=== PATIENT | male | born 1955 | race Caucasian/White ===

== ENCOUNTER → 2017-12-07 09:12 | Outpatient (CLI) | payer MEDICARE, OTHER, SELFPAY ==
[2017-12-07 11:57] LABS: Color, Urine Yellow (Yellow); Glucose, Dipstick Normal (Normal); Ketone-Dipstick Negative (Negative); Leukocyte Esterase-Dipstick Negative /ul (Negative); Nitrite-Dipstick Negative (Negative); Occult Blood-Urine Negative /ul (Negative); Protein-Dipstick 15 mg/dl (Negative); Urine Bilirubin Dipstick Negative (Negative); Urine Clarity Clear (Clear); Urine Urobilinogen Normal (Normal); Urine pH 6.5 (5.0 - 8.0)
[2017-12-07 12:01] LABS: Absolute Lymphocyte Count 1.25 X10^3/ul (0.83-4.51); Absolute Neutrophil Count 3.5 X10^3/uL (2.0-7.7); Basophil# 0.02 X10^3/uL; Basophil% 0.3 % (0-1); Eosinophil# 0.29 X10^3/uL; Hematocrit 48.2 % (40-54); Hemoglobin 16.6 g/dl (13.0-16.5); Lymphocyte # 1.25 X10^3/ul (4.0); Lymphocyte % 21.5 % (19-41); Mean Corp Hgb Conc 34.4 g/gl (32-36); Mean Corpuscular Hgb 33.9 pg (27.0-32.0); Mean Corpuscular Volume 98.4 fL (80-94); Mean Platelet Vol. 9.6 fl (6.2-12.0); Monocyte# 0.69 X10^3/uL; Monocyte% 11.9 % (0-10); Neutrophil % 60.1 % (47-70); Platelet Count 207 K/mm3 (150-450); RBC Distribution Width CV 12.4 % (11.6-14.6); White Blood Count 5.8 K/mm3 (4.4-11.0)
[2017-12-07 12:03] LABS: POSITIVE COUNT NO; POSITIVE DIFFERENTIAL NO; POSITIVE MORPHOLOGY NO
[2017-12-07 12:45] LABS: AST(SGOT) 24 U/L (15-37); Alanine Aminotransfer ALT/SGPT 35 U/L (16-61); Albumin, Serum 3.7 g/dL (3.2-5.0); Alkaline Phosphatase 89 U/L (45-117); Anion Gap 8 (5-15); BUN 14 mg/dL (7-18); BUN/Creat Ratio 14.4 RATIO (10-20); Calcium,Total 8.8 mg/dL (8.5-10.1); Chloride 103 mmol/L (98-107); Cholesterol 172 mg/dL (200); Creatinine, Serum 0.97 mg/dL (0.70-1.30); EST Glomerular Filtration Rate 83 mL/min (>60); Est Glom Filt Rate - Afr Amer 101 mL/min (>60); Globulin 3.8 g/dL (2.2-4.2); Glucose 85 mg/dL (70-110); High Density Lipoprotein 69 mg/dL; Potassium 4.1 mmol/L (3.5-5.1); Protein, Total 7.5 g/dL (6.4-8.2); Sodium Level 140 mmol/L (136-145); Triglycerides 104 mg/dL; Very Low Density Lipoprotein 21 mg/dL (5-40)
== END ==
PROVIDERS: Family Provider Family Medicine; PCP Family Medicine; Visit Provider Family Medicine
DX: Z00.00 Encounter for general adult medical examination without abnormal findings (principal); I10 Essential (primary) hypertension
CPT/HCPCS: 36415; 80053; 80061; 81002; 85025

== ENCOUNTER → 2018-01-04 08:10 | Outpatient (CLI) | payer MEDICARE, OTHER, SELFPAY | PROVIDERS: Visit Provider Family Medicine | DX: Z12.5 Encounter for screening for malignant neoplasm of prostate (principal) | CPT/HCPCS: 36415; 84153; G0103 ==

== ENCOUNTER → 2018-01-21 16:06 | Outpatient (CLI) | payer MEDICARE, OTHER, SELFPAY ==
[2018-01-21 17:52] LABS: PSA,Total- Diagnostic 4.62 ng/mL (0.0-4.0)
== END ==
PROVIDERS: Visit Provider Urology
DX: R97.20 Elevated prostate specific antigen [PSA] (principal)
CPT/HCPCS: 36415; 84153

== ENCOUNTER → 2018-04-28 08:43 | Outpatient (CLI) | payer MEDICARE, BC, SELFPAY ==
[2018-04-28 09:38] LABS: PSA,Total- Diagnostic 1.62 ng/mL (0.0-4.0)
== END ==
PROVIDERS: Visit Provider Urology
DX: R97.20 Elevated prostate specific antigen [PSA] (principal)
CPT/HCPCS: 36415; 84153

== ENCOUNTER → 2018-07-14 12:42 | Outpatient (CLI) | payer MEDICARE, BC, SELFPAY ==
[2018-07-14 14:59] LABS: Anion Gap 10 (5-15); BUN 8 mg/dL (7-18); BUN/Creat Ratio 9.1 RATIO (10-20); Calcium,Total 8.9 mg/dL (8.5-10.1); Chloride 103 mmol/L (98-107); Creatinine, Serum 0.88 mg/dL (0.70-1.30); EST Glomerular Filtration Rate 93 mL/min (>60); Est Glom Filt Rate - Afr Amer 113 mL/min (>60); Glucose 108 mg/dL (74-106); Potassium 4.3 mmol/L (3.5-5.1); Sodium Level 140 mmol/L (136-145)
== END ==
PROVIDERS: Visit Provider Family Medicine
DX: R10.9 Unspecified abdominal pain (principal)
CPT/HCPCS: 36415; 80048

== ENCOUNTER → 2019-10-26 08:49 | Outpatient (CLI) | payer MEDICARE, BC, SELFPAY ==
[2019-10-26 10:14] LABS: Absolute Lymphocyte Count 1.64 X10^3/uL (0.83-4.51); Absolute Neutrophil Count 1.9 X10^3/uL (2.0-7.7); Basophil# 0.03 X10^3/uL; Basophil% 0.7 % (0-1); Eosinophil# 0.13 X10^3/uL; Eosinophils% 3.1 % (0-5); Hematocrit 46.8 % (40-54); Hemoglobin 16.1 g/dL (13.0-16.5); Lymphocyte # 1.64 X10^3/ul (4.0); Lymphocyte % 38.8 % (19-41); Mean Corp Hgb Conc 34.4 g/dL (32-36); Mean Corpuscular Hgb 34.6 pg (27.0-32.0); Mean Corpuscular Volume 100.6 fL (80-94); Mean Platelet Vol. 9.4 fl (6.2-12.0); Monocyte# 0.48 X10^3/uL; Monocyte% 11.3 % (0-10); NRBC Flagged by Analyzer 0 % (0-5); Neutrophil # 1.88 X10^3/uL (2.7-7.7); Neutrophil % 44.4 % (47-70); Platelet Count 188 K/mm3 (150-450); RBC Distribution Width CV 11.8 % (11.6-14.6); RBC Distribution Width SD 43.4 fl (35.1-43.9); Red Blood Count 4.65 M/mm3 (4.6-6.2); White Blood Count 4.2 K/mm3 (4.4-11.0)
[2019-10-26 10:25] LABS: Color, Urine Yellow (Yellow); Glucose, Dipstick Normal (Normal); Ketone-Dipstick Negative (Negative); Leukocyte Esterase-Dipstick Negative /ul (Negative); Nitrite-Dipstick Negative (Negative); Occult Blood-Urine Negative /ul (Negative); Protein-Dipstick 15 mg/dl (Negative); Specific Gravity, Urine 1.015 (1.002-1.030); Urine Bilirubin Dipstick Negative (Negative); Urine Clarity Clear (Clear); Urine Urobilinogen Normal (Normal)
[2019-10-26 10:33] LABS: ALB/GLOB Ratio 0.9 RATIO (0.9-2.4); AST(SGOT) 28 U/L (15-37); Alanine Aminotransfer ALT/SGPT 43 U/L (16-61); Albumin, Serum 3.4 g/dL (3.2-5.0); Alkaline Phosphatase 99 U/L (45-117); Anion Gap 7 (5-15); BUN 12 mg/dL (7-18); BUN/Creat Ratio 11.1 RATIO (10-20); Calcium,Total 8.2 mg/dL (8.5-10.1); Chloride 102 mmol/L (98-107); Cholesterol 162 mg/dL (200); Creatinine, Serum 1.08 mg/dL (0.70-1.30); EST Glomerular Filtration Rate 73 mL/min (>60); Est Glom Filt Rate - Afr Amer 88 mL/min (>60); Globulin 3.7 g/dL (2.2-4.2); Glucose 102 mg/dL (74-106); High Density Lipoprotein 58 mg/dL; PSA,Total - Annual Screen 1.22 ng/mL (0.00-4.00); Potassium 4.3 mmol/L (3.5-5.1); Protein, Total 7.1 g/dL (6.4-8.2); Sodium Level 137 mmol/L (136-145); Triglycerides 117 mg/dL; Very Low Density Lipoprotein 23 mg/dL (5-40)
== END ==
PROVIDERS: Referring Provider Family Medicine; Visit Provider Family Medicine
DX: Z00.00 Encounter for general adult medical examination without abnormal findings (principal); I10 Essential (primary) hypertension; R97.20 Elevated prostate specific antigen [PSA]
CPT/HCPCS: 36415; 80053; 80061; 81002; 84153; 85025; G0103

== ENCOUNTER → 2020-11-21 08:13 | Outpatient (CLI) | payer MEDICARE, BC, SELFPAY ==
--- NOTE | 2020-11-21 08:35 | EKG12_ITS ---
Test Reason : PREOP Blood Pressure : / mmHG Vent. Rate : 093 BPM Atrial Rate : 093 BPM P-R Int : 144 ms QRS Dur : 084 ms QT Int : 362 ms P-R-T Axes : 065 071 056 degrees QTc Int : 450 ms Normal sinus rhythm Normal ECG Confirmed by LILLIAM OLIVA, RYAN ([id number]), scientific editor SHANTANU DUNHAM ([id number]) on 11/22/2020 11:33:13 AM Referred By: NEEL DAVE Confirmed By:RYAN VYAS MD
[2020-11-21 09:25] LABS: Absolute Lymphocyte Count 1.67 X10^3/uL (0.83-4.51); Absolute Neutrophil Count 4.1 X10^3/uL (2.0-7.7); Basophil# 0.06 X10^3/uL; Basophil% 0.9 % (0-1); Eosinophil# 0.31 X10^3/uL; Eosinophils% 4.5 % (0-5); Hematocrit 47.1 % (40-54); Hemoglobin 16.6 g/dL (13.0-16.5); Lymphocyte # 1.67 X10^3/ul (4.0); Lymphocyte % 24.2 % (19-41); Mean Corp Hgb Conc 35.2 g/dL (32-36); Mean Corpuscular Hgb 35.4 pg (27.0-32.0); Mean Corpuscular Volume 100.4 fL (80-94); Mean Platelet Vol. 9.2 fl (6.2-12.0); Monocyte# 0.68 X10^3/uL; Monocyte% 9.9 % (0-10); NRBC Flagged by Analyzer 0 % (0-5); Neutrophil # 4.09 X10^3/uL (2.7-7.7); Neutrophil % 59.3 % (47-70); Platelet Count 285 K/mm3 (150-450); RBC Distribution Width CV 11.7 % (11.6-14.6); RBC Distribution Width SD 43.1 fl (35.1-43.9); Red Blood Count 4.69 M/mm3 (4.6-6.2); White Blood Count 6.9 K/mm3 (4.4-11.0)
[2020-11-21 10:01] LABS: Anion Gap 7 (5-15); BUN 8 mg/dL (7-18); BUN/Creat Ratio 8.2 RATIO (10-20); Calcium,Total 9.1 mg/dL (8.5-10.1); Chloride 101 mmol/L (98-107); Creatinine, Serum 0.98 mg/dL (0.70-1.30); EST Glomerular Filtration Rate 81 mL/min (>60); Est Glom Filt Rate - Afr Amer 98 mL/min (>60); Glucose 91 mg/dL (74-106); Sodium Level 137 mmol/L (136-145)
== END ==
DX: I10 Essential (primary) hypertension (principal)
CPT/HCPCS: 36415; 80048; 85025; 93005

== ENCOUNTER 2020-12-27 03:49 | Inpatient (IN) | payer MEDICARE, OTHER, BC, SELFPAY ==
[2020-12-27] VITALS (29 sets, daily range): BP systolic 107–160; BP diastolic 76–102; PULSE 86–115; RESP 9–26; TEMP 36.6–36.9; O2SAT 91–99; BMI 25.8
--- NOTE | 2020-12-27 03:54 | EKG12_ITS ---
Test Reason : CP Blood Pressure : / mmHG Vent. Rate : 108 BPM Atrial Rate : 108 BPM P-R Int : 128 ms QRS Dur : 084 ms QT Int : 322 ms P-R-T Axes : 052 068 085 degrees QTc Int : 431 ms Sinus tachycardia Nonspecific ST and T wave abnormality Abnormal ECG Confirmed by LILLIAM OLIVA, RYAN ([id number]), scientific publications editor KATE BLANK ([id number]) on 01/14/2021 2:50:55 PM Referred By: Deanna Champion Confirmed By:RYAN VYAS MD
--- NOTE | 2020-12-27 03:54 | EKG12_ITS ---
Test Reason : AM EKG Blood Pressure : / mmHG Vent. Rate : 091 BPM Atrial Rate : 091 BPM P-R Int : 140 ms QRS Dur : 084 ms QT Int : 378 ms P-R-T Axes : 050 046 056 degrees QTc Int : 464 ms Normal sinus rhythm Normal ECG When compared with ECG of 27-DEC-2020 04:01, MANUAL COMPARISON REQUIRED, DATA IS UNCONFIRMED Confirmed by ERASMO OLIVA, RUKHSANA ([id number]), scientific editor KATE BLANK ([id number]) on 12/31/2020 11:02:21 AM Referred By: Deanna Champion Confirmed By:RUKHSANA ZIMMERMAN MD
--- NOTE | 2020-12-27 03:54 | RAD_ITS ---
STUDY: X-RAY CHEST REASON FOR EXAM: Male, 65 years old. STEMI -- CP STARTED YESTERDAY TECHNIQUE: Single AP portable view of the chest. COMPARISON: 11/29/2015 FINDINGS: The lungs are clear and expanded. There is no demonstrated pleural abnormality. Normal size heart. Normal mediastinum and roopa. Normal visualized pulmonary arteries. Normal visualized aortic arch and descending thoracic aorta. Normal visualized thoracic spine. Normal visualized ribs, clavicles, and shoulders. There is no demonstrated abnormality of the visualized soft tissue structures of the upper abdomen. RAD/Chest 1 View (Portable) IMPRESSION: Normal x-ray examination of the chest. Electronically Signed: Domingo Mendoza DO at 4:23 EST Tel , Service support ,
[2020-12-27] MEDS: Aspirin 81 MG TAB.CHEW 324 MG PO (03:58)
--- NOTE | 2020-12-27 03:59 | ED.DCSUM_ITS ---
History of Present Illness Chief Complaint: Chest Pain Narrative: Patient is a 65-year-old male who presents with severe chest pain. He had chest pain in the morning about 3 weeks ago but this is since resolved. He developed some chest pain yesterday afternoon which seemed to improve towards the evening. He went to bed. He woke about an hour ago with severe pain. His pain is substernal. It is sharp in nature. He rates it as 10 out of 10. There are no exacerbating or relieving factors. He states he has never had pain like this before. He denies any lightheadedness/dizziness, shortness of breath, diaphoresis, nausea. His pain does not radiate into the back neck or to the extremities. He denies any extremity pain or swelling, prior history of DVT or pulmonary embolism, recent travel, he did have a left rotator cuff shoulder surgery about 1 month ago. Past Medical History - Allergies and Home Meds Allergies/Adverse Reactions: Allergies No Known Allergies Allergy (Verified 12/27/20 03:51) Primary Care Physician: Hugh Ramos [Primary Care Provider] - Past Medical History: - - Hypertension Smoking Status: Never smoker Review of Systems All systems negative except as indicated General: Denies: Fever Eyes: Denies: Visual changes - bilaterally ENT: Denies: Bilateral ear pain Cardiovascular: Reports: Chest pain Respiratory: Denies: Dyspnea Gastrointestinal: Denies: Nausea, Vomiting Musculoskeletal: Denies: Myalgias, Extremity Pain Skin: Denies: Rash Neurological: Denies: Headache Hematologic: Denies: Easy bruising Allergy: Denies: Uticaria Physical Exam Vital Signs/Narrative: Vital Signs Temp Pulse Resp BP Pulse Ox 12/27/20 03:49 97.9 F 111 H 18 160/97 H 97 Inital Vital Signs reviewed: Yes General: Well nourished Head: Normocephalic Eyes: EOMI ENT: Moist mucous membranes Neck: Supple Cardiovascular: Regular rhythm, Tachycardia Respiratory: No distress, CTA bilaterally. Negative for: Rales, Rhonchi, Wheezing Abdomen: Soft, Nontender Skin: Normal color Neurological: Alert Psychological: Normal affect Diagnostic/Tx/Re-eval 12/27/20 03:54 Chest 1 View (Portable) [RAD] Stat Laboratory Results 12/27/20 03:54 WBC 8.5 RBC 4.95 Hgb 17.4 H Hct 50.5 MCV 102.0 H MCH 35.2 H MCHC 34.5 RDW Std Deviation 44.9 H RDW Coeff of Anabella 12.0 Plt Count 320 MPV 8.5 Immature Gran % (Auto) 1.800 H Neut % (Auto) 65.9 Lymph % (Auto) 20.1 [place] % (Auto) 9.6 Eos % (Auto) 1.8 Baso % (Auto) 0.8 Absolute Neuts (auto) 5.6 Absolute Lymphs (auto) 1.70 Nucleated RBC % 0 Impressions Chest X-Ray 12/27/20 03:54 IMPRESSION: Normal x-ray examination of the chest. Electronically Signed: Domingo DO Reji at 4:23 EST Tel , Service support , 12/27/20 03:54 Chest 1 View (Portable) [RAD] Stat Laboratory Results 12/27/20 12/27/20 03:54 03:54 WBC 8.5 RBC 4.95 Hgb 17.4 H Hct 50.5 MCV 102.0 H MCH 35.2 H MCHC 34.5 RDW Std Deviation 44.9 H RDW Coeff of Anabella 12.0 Plt Count 320 MPV 8.5 Immature Gran % (Auto) 1.800 H Neut % (Auto) 65.9 Lymph % (Auto) 20.1 [place] % (Auto) 9.6 Eos % (Auto) 1.8 Baso % (Auto) 0.8 Absolute Neuts (auto) 5.6 Absolute Lymphs (auto) 1.70 Nucleated RBC % 0 Sodium 136 Potassium 3.7 Chloride 101 Carbon Dioxide 27.0 Anion Gap 8 BUN 6 L Creatinine 0.90 Estim Creat Clear Calc 79.17 Est GFR (MDRD) Af Amer 108 Est GFR (MDRD) Non-Af 89 BUN/Creatinine Ratio 6.6 L Glucose 131 H Calcium 9.4 Troponin I 1.540 H* - Medical Decision Making Initial EKG shows sinus tachycardia at a rate of 108. There is [address] elevation in lead III. Lead aVF is limited due to baseline wander and there is artifact in the precordial leads. A repeat EKG was obtained which shows sinus rhythm at a rate of 99. There is about [address] elevation in lead III and subtle roughly 0.[address] elevation in aVF as well as depression in leads I and aVL. When compared to prior EKG these are new. STEMI supply technician was paged, EKGs were sent via secure messaging system. Code STEMI was called. The patient was given aspirin, heparin, Brilinta, morphine, Zofran. One-view portable chest x-ray was obtained. On my interpretation this shows an acute process. X- ray read by radiology who agrees. I did speak to the interventional c ardiologist, Dr. Champion and patient will be taken for emergent cardiac catheterization. Labs did return notable for troponin of 1.5. - Critical Care Time Critical care time (excluding procedures): 30-74 minutes, Discussing w/Consultants ED Disposition - Plan for ED Patient: Disposition: Acute Care Hospital [facility] Diagnosis: ST elevation myocardial infarction (STEMI) of inferior wall Referrals: Hugh Ramos [Primary Care Provider] -
[2020-12-27 04:01] LABS: Absolute Neutrophil Count 5.6 X10^3/uL (2.0-7.7); Basophil# 0.07 X10^3/uL; Basophil% 0.8 % (0-1); Eosinophil# 0.15 X10^3/uL; Eosinophils% 1.8 % (0-5); Hematocrit 50.5 % (40-54); Hemoglobin 17.4 g/dL (13.0-16.5); Lymphocyte % 20.1 % (19-41); Mean Corp Hgb Conc 34.5 g/dL (32-36); Mean Corpuscular Hgb 35.2 pg (27.0-32.0); Mean Platelet Vol. 8.5 fl (6.2-12.0); Monocyte# 0.81 X10^3/uL; Monocyte% 9.6 % (0-10); NRBC Flagged by Analyzer 0 % (0-5); Neutrophil # 5.57 X10^3/uL (2.7-7.7); Neutrophil % 65.9 % (47-70); Platelet Count 320 K/mm3 (150-450); RBC Distribution Width SD 44.9 fl (35.1-43.9); Red Blood Count 4.95 M/mm3 (4.6-6.2); White Blood Count 8.5 K/mm3 (4.4-11.0)
[2020-12-27] MEDS: Ondansetron 4 MG/2 ML Vial IV (04:04)
[2020-12-27] MEDS: Morphine 4 MG/ML Syringe IV (04:04)
[2020-12-27] MEDS: Heparin Injection (Vial) 5,000 UNIT/ML VIAL 4000 UNIT IV (04:18)
[2020-12-27] MEDS: TICAGRELOR 90 MG TABLET 180 MG PO (04:18)
[2020-12-27 04:23] LABS: Anion Gap 8 (5-15); BUN 6 mg/dL (7-18); BUN/Creat Ratio 6.6 RATIO (10-20); Calcium,Total 9.4 mg/dL (8.5-10.1); Chloride 101 mmol/L (98-107); EST Glomerular Filtration Rate 89 mL/min (>60); Est Glom Filt Rate - Afr Amer 108 mL/min (>60); Estimated Creatinine Clearance 79.17 ml/min; Glucose 131 mg/dL (74-106); Potassium 3.7 mmol/L (3.5-5.1); Sodium Level 136 mmol/L (136-145)
--- NOTE | 2020-12-27 04:24 | ED.RN ---
0406 current EKG and previous EKG picture msg texted to per request
--- NOTE | 2020-12-27 04:28 | PCM.HP.STD ---
Problem List (1) ST elevation myocardial infarction (STEMI) of inferior wall Status: Acute History of Present Illness Date of Admission: 12/27/20 Chief Complaint: chest pain The patient is a 65 year old M with a significant history of hypertension and alcoholism who presents to the emergency department with excruciating persistent lower substernal chest pain that was present when he woke up at around 1 AM of the day of presentation. He described this pain as burning. The pain is nonradiating. He denies any aggravating or ameliorating factors to the pain. Three weeks ago he had this pain but it was intermittent; and he attributed that pain to acid reflux. Patient arrived at emergency department by private vehicle. EKG at emergency department showed ST elevation ME. STEMI alert was called. Past Medical History Medical History: Medical History (Last Updated 12/27/20 @ 04:[address] Oswaldo Redd MD) Hypertension I10 Allergies No Known Allergies Allergy (Verified 12/27/20 03:51) Home Medications: Ambulatory Orders Medication Instructions Recorded Lisinopril [Zestril] 10 mg PO DAILY 12/27/20 Surgical History: rotator cuff repair Smoking Status: Never smoker Alcohol: Heavy - *Family History Maternal History Items: Heart Disease Paternal History Items: Diabetes Review of Systems Constitutional: Denies: Chills, Fever, Weight Change HEENT: Denies: Head Aches, Sinus Congestion, Sinus Drainage Cardiovascular: Reports: Chest Pain. Denies: Palpitations Respiratory: Denies: Cough, Shortness of breath at rest, Sputum production Gastrointestinal: Denies: Abdominal Pain, Nausea, Vomiting Genitourinary: Denies: Dysuria Musculoskeletal: Denies: Joint Pain, Joint Tenderness Skin: Denies: Rash, Wounds Neurological: Denies: Numbness, Tingling, Focal weakness Psychiatric: Denies: Anxiety, Depression, Homicidal Ideations, Suicidal Ideations Hematologic/ Lymphatic: Denies: Easy Bruising, Easy Bleeding VTE Information - Inpt Only VTE Present on Admission: No VTE Mechan Device Prophylaxis: None VTE Pharm Prophylaxis ordered?: No Reason prophylaxis not ordered:: Treatment Not Indicated - Received heparin bolus at the emergency department. Patient Problems: Active and Suspected Problems (Last Updated 12/27/20 @ 04:[address] Oswaldo Redd MD) ST elevation myocardial infarction (STEMI) of inferior wall (Acute) - Physical Exam Vitals/I&O's: Vital Signs Temp Pulse Resp BP Pulse Ox 97.9 F 111 H 18 160/97 H 97 12/27/20 03:49 12/27/20 03:49 12/27/20 03:49 12/27/20 03:49 12/27/20 03:49 Oxygen Delivery Method Room Air Weight: 77 kg Body Mass Index (BMI) 25.8 General: Alert, Oriented x3, Cooperative HEENT: Atraumatic, PERRLA, EOMI, Normocephalic Neck: Supple, No JVD, Negative Carotid Bruits Lungs: Clear to auscultation, Normal air movement Cardiovascular: Regular rate, No murmurs Abdomen: Bowel Sounds Present, Soft, Non Tender Extremities: No edema, Capillary Refill Less than 3 Seconds Skin: No rashes, No breakdown Musculoskeletal: No Tenderness to Palpation of Joints or Extremities Neurological: Cranial nerves II-XII grossly intact Psych/Mental Status: Normal Affect, Appropriate Laboratory Results 12/27/20 03:54: WBC 8.5, RBC 4.95, Hgb 17.4 H, Hct 50.5, MCV 102.0 H, MCH 35.2 H, MCHC 34.5, RDW Std Deviation 44.9 H, RDW Coeff of Anabella 12.0, Plt Count 320, MPV 8.5, Immature Gran % (Auto) 1.800 H, Neut % (Auto) 65.9, Lymph % (Auto) 20.1, [place] % (Auto) 9.6, Eos % (Auto) 1.8, Baso % (Auto) 0.8, Absolute Neuts (auto) 5.6, Absolute Lymphs (auto) 1.70, Nucleated RBC % 0 12/27/20 03:54: Sodium 136, Potassium 3.7, Chloride 101, Carbon Dioxide 27.0, Anion Gap 8, BUN 6 L, Creatinine 0.90, Estim Creat Clear Calc 79.17, Est GFR (MDRD) Af Amer 108, Est GFR (MDRD) Non-Af 89, BUN/Creatinine Ratio 6.6 L, Glucose 131 H, Calcium 9.4, Troponin I 1.540 H* 12/27/20 03:54: PT Pending, INR Pending, APTT Pending Assessment/Plan All Active Problems (Last Updated 12/27/20 @ 04:[address] Oswaldo Redd MD) ST elevation myocardial infarction (STEMI) of inferior wall (Acute) The patient is a 65 year old M with a significant history of hypertension and alcoholism who presents emergency department with excruciating persistent lower substernal chest pain that was present when he woke up at around 1 AM of the day of presentation and found to have ST elevation ME in inferior leads. ST elevation ME Patient was giving a full dose of aspirin; heparin bolus; morphine IV; Zofran IV and Brilinta x1 at the ED. Troponin returned elevated at 1.540; trend. Patient will be wheeled to the Management Technician. Actual chest x-ray image independently reviewed showed no acute cardiopulmonary process. EKG personally reviewed showed ST elevation in leads III and aVF; with reciprocal ST depression in leads I and aVL. Hypertension Blood pressure is not within goal Lisinopril continued. Hold parameters placed. Trend blood pressure and adjust blood pressure medications. Alcoholism. Patient and his confirmed that patient drinks lots. He drinks beer; wine and whiskey. Consider putting patient on withdrawal protocol when patient returned from Management Technician DVT prophylaxis Not indicated at this time since patient received heparin bolus and is being taken to the Management Technician. Inpatient E&M: 30665 Init Hosp L3
[2020-12-27 04:29] LABS: Prothrombin Time (Protime)PT. 12.3 SECONDS (11.7-14.9)
[2020-12-27 04:30] LABS: Partial Thromboplast Time 23.7 Seconds (24.1-36.2)
--- NOTE | 2020-12-27 06:33 | CL.PCI_ITS ---
PCI Cardiac Cath Report PCI Report: Procedure report; 1. Successful placement of drug-eluting stent 2.25 x 32 mm Synergy distal RCA, overlap with 2.25 mm x 32 mm Synergy stent to the mid RCA, overlap with 2.75 x 20 mm Synergy stent to the proximal RCA. 2. Occluded proximal RCA with calcification and DON 0 flow 3. Post PCI following stent placement achievement of 0% stenosis and DON-3 flow in the RCA. 4. Moderate sedation. 5. Placement of TR band to close the right radial artery arteriotomy site. Preprocedure diagnosis; This patient is a 65-year-old had ongoing symptoms of epigastric and chest discomfort patient, said he thought this is acid reflux nearly for 3 weeks This afternoon he had a similar discomfort and when he went to bed around 9:00 PM he was still having mild discomfort and woke him up in the morning around 1:00 AM with severe retrosternal chest pain with some sweating. Brought into the ER Where he was seen by the ER physician started on morphine heparin Brilinta and aspirin. Patient had significant family history of CAD both parents had a history of myocardial infarction and also had a history of hypertension and has been on NICHELLE inhibitor with lisinopril Patient is not smoker, he is retired and he lives with his . EKG showed [address] elevation, only in lead III, there were no ST elevation in lead II and aVF and less than 1 mm in lead III and symptoms have been ongoing for at least 3 weeks there is some reciprocal change noted in the lateral lead I aVL and also in V1 and V2 based on his clinical presentation and he also having still symptoms of chest pain when I came to evaluate him in the ER ,I decided to take him to the Paste Up Artist Apprentice however he does not fulfill the criteria of ST elevation NV. Clinical diagnosis of acute coronary syndrome with ongoing symptoms of chest pain and change in the EKG, which does not fulfill the criteria for STEMI Consent; Risk, benefit of procedure explained in detail to the patient elected to proceed informed consent obtained. at bedside in the ER when I discussed the risks and benefits of this procedure Moderate sedation; Patient was given intravenous Versed intravenous fentanyl. Procedure in detail patient brought into the Paste Up Artist Apprentice, right radial artery area prepped and draped in the usual sterile fashion Under local anesthesia using lidocaine 6 British sheath placed in the right radial artery Cocktail of heparin 3000 units, verapamil 2.5 mg and 200 mcg of nitroglycerin was given through the sheath. Then we proceed with the regular J-wire and we used 3.5 JL4, diagnostic catheter selective angiographic view of the left coronary system were obtained We identified the culprit lesion as there were collaterals from the LAD to the distal RCA with occlusion of the RCA Therefore we will proceed with JR4 6 British guide catheter Patient was given additional dose of heparin and the ACT elevated around 240 he was given additional 2000 of heparin patient already had Brilinta in the emergency department as well as an aspirin. We will proceed with the multiple views for the left coronary system including GREENLANDIC, MCCANN cranial and caudal views And then will proceed with the guide catheter JR4 after we identified the culprit lesion and we used initially a run-through wire and we used BMW wire 0.014. Placed in the distal RCA and then we started to do balloon dilatation using 2 x 20 mm Emerge balloon dilated from the distal RCA mid RCA in the proximal RCA, this is followed by placement of a drug-eluting stent Synergy 2.25 x 32 mm Synergy in the distal RCA, overlapped with 2.5 x 32 mm Synergy drug-eluting stent to the mid RCA and overlap with 2.75 x 20 mm Synergy stent to the proximal RCA which is calcified This is followed by postdilatation using 3 x 15 NC Emerge balloon to the proximal portion of the RCA as well as the midportion we were able to achieve DON-3 flow in the right coronary artery with the reduction of stenosis from 100% with DON 0 flow and occluded artery to 0% and DON-3 flow in the RCA. Findings of coronary angiography; 1. Left main coronary artery is heavily calcified, bifurcating into left anterior descending the left circumflex Angiographically there is no obstructive atherosclerosis of the left main coronary artery 2. Extension of calcification to the proximal and the mid LAD which is a moderate-sized vessel, with diffuse atherosclerosis noted in the mid LAD at least around 20 mm in length, with a 70% stenosis in the mid LAD. #3 left circumflex proximally calcified with around 20 to 30% stenosis, OM1 is a moderate-sized vessel with a focal stenosis of around 80% 4. Collaterals were noted from the septal branches of the LAD to the distal RCA which is occluded 5. Occluded proximal RCA with calcified proximal RCA Following the intervention of the culprit lesion in the RCA patient symptoms of chest pain improved significantly and he remained remained stable hemodynamically. Conclusion and recommendations; 1. We will evaluate this patient by echocardiogram today 2. Patient will be on dual antiplatelet therapy with Brilinta/aspirin 81 mg for 1 year 3. Patient had a significant atherosclerosis of 2 other vessels which is diffuse atherosclerosis of the mid LAD of around 70% and a focal lesion of the OM 1 around 80% stenosis Elective PCI of the LAD and the left circumflex, 1 to 2 weeks post discharge. Patient has been on lisinopril for hypertension, he is not a smoker he does have significant family history of CAD mother had a history of myocardial infarction and father with an NV We will start on statin therapy, low-dose beta-richard, and will continue on his lisinopril in addition to the dual antiplatelet therapy. Finding of cardiac catheterization and intervention explained in detail to the patient as well as his and patient will be admitted to the ICU. Deanna Champion MD,FACC,[facility] control systems drafting officer
[2020-12-27] MEDS: 0.9% Saline Lock 10 ML Syringe IV (06:52)
--- NOTE | 2020-12-27 07:23 | ECHOCS_ITS ---
Reason For Study: Chest pain, STEMI Procedure This was a 2D Doppler, Color Flow transthoracic echocardiogram. The study was technically difficult. Patient scanned supine due to recent left rotator cuff surgery. Exam performed portable in ICU/CCU. Left Ventricle Normal LV size. Left ventricular systolic function is normal. The estimated ejection fraction is 65 %. Stage 1 diastolic dysfunction. Infero-Basal: Akinetic. The rest of the wall segments are normal. Right Ventricle Normal RV size. Normal systolic function. Atria Normal left atrium. Normal right atrium. Mitral Valve Normal mitral valve. Tricuspid Valve The tricuspid valve is not well visualized. Unable to estimate RV systolic pressure due to insufficient tricuspid regurgitant envelope. Aortic Valve The aortic valve is not well visualized. Pulmonic Valve The pulmonic valve is not well visualized. Great Vessels Normal aortic root. The pulmonary artery is normal size. Normal inferior vena cava. Pericardium/Pleural No pericardial effusion. Medication Diluted definity 3ml given slow IV push to enhance endocardial definition. MMode/2D Measurements & Calculations RVDd: 3.4 cm Ao root diam: 3.6 cm LAV(MOD-bp): 24.1 ml LAV(MOD-bp) Indexed: 12.7 ml/m2 LAV(MOD-sp2): 23.4 ml LAV(MOD-sp4): 22.5 ml SV(MOD-sp4): 42.0 ml SV(sp4-el): 44.3 ml LVAd ap4: 22.9 cm2 EDV(MOD-sp4): 62.0 ml EDV(sp4-el): 64.5 ml LVAs ap4: 11.7 cm2 ESV(MOD-sp4): 20.0 ml ESV(sp4-el): 20.2 ml EF(MOD-sp4): 67.8 % EF(sp4-el): 68.7 % LA dimension(2D): 2.4 cm LA A4 area: 11.2 cm2 RA A4 area: 12.5 cm2 Doppler Measurements & Calculations MV E max james: 52.2 cm/sec Lat Peak E' James: 10.3 cm/sec Med Peak E' James: 5.4 cm/sec MV A max james: 79.0 cm/sec E/E' lat: 5.0 E/E' med: 9.6 MV E/A: 0.66 Ao V2 max: 131.2 cm/sec LV V1 max: 94.7 cm/sec PA V2 max: 74.8 cm/sec Ao max P.9 mmHg LV V1 max P.6 mmHg Interpretation Summary Normal LV size. Left ventricular systolic function is normal. The estimated ejection fraction is 65 %. Stage 1 diastolic dysfunction. Contrast injection was performed. Ordering Physician: Deanna Champion Referring Physician: Crow Ramos M.D. Performed By: Ruthie Chapin RDCS
[2020-12-27] MEDS: Thiamine Hydrochloride 100 MG Tablet PO (09:23)
[2020-12-27] MEDS: Lisinopril 10 MG Tablet PO (09:23)
[2020-12-27] MEDS: Folic Acid 1 MG Tablet PO (09:23)
[2020-12-27] MEDS: 0.9% Normal Saline 1,000 ML 100 ML IV (11:01)
--- NOTE | 2020-12-27 11:28 | CRPHASE1 ---
Patient Communication PHII Cardiac Rehab Discussed with Patient:: Yes Guide to Cardiac Rehab Given to Patient:: Yes Cardiac Rehab Facility Choice List Given to Patient:: Yes Choice Program [facility] CR PHII:: Communication Given to CR, Refer to [facility] Mold Maker Helper:: Deanna Champion Phase II Cardiac Rehab:: Yes Sessions:: 36 sessions - 3 days/wk, 12 weeks Cardiac Rehabilitation Info Cardiac Rehabilitation Program Information: Cardiac Rehabilitation is important for patients like you who are recovering from a heart problem. Cardiac rehabilitation programs are recognized as integral to the continued care of the patient with coronary heart disease. The cardiac rehabilitation program is designed to optimize a patient's physical, psychological, and social functioning. Health coronary care unit nurse work in cardiac rehabilitation programs and assist you with getting the treatments you need to get stronger and healthier - like exercise, healthy eating habits, and medications. Cardiac rehabilitation has been show to help people with heart problems live longer and have better life enjoyment than people who do not go to cardiac rehabilitation. Please contact the Cardiac Rehabilitation Program at [facility] at in two weeks if you have not heard from them.
--- NOTE | 2020-12-27 11:29 | CRPH1.INSTRU ---
General Education CAD and cardiac anatomy and function:: Patient communicates acknowledgment Explanation of diagnoses and procedures:: Patient communicates acknowledgment Sign/Symptoms of CA:: Patient communicates acknowledgment Antiplatelet therapy: Patient communicates acknowledgment Proper use of NTG-SL: Patient communicates acknowledgment Emergency procedures and activation of EMS: Patient communicates acknowledgment Compliance of all prescribed medications: Patient communicates acknowledgment
--- NOTE | 2020-12-27 11:36 | CASEMGMT ---
Social Work SW to room to meet with patient for initial transition planning/care coordination assessment. SW introduced self and role at [facility]. Pt voices understanding and consents to assessment at this time. Pt resting in bed in no distress at this time. Pt is A/O and answers all questions appropriately. Care providers, pharmacy, and demographics verified/updated at this time. PCP: Hugh Ramos Specialists: [facility] Preferred Pharmacy: [facility] Insurance: Medicare, [place] secondary Prescription Benefit: [employer] Living Will/HPOA: Pt states he has a living will and health care POA naming his Catalina Tipton. Pt notified documents are not on chart and requested they be brought in when able. LNOK: Catalina Tipton Living Arrangements: Pt lives in a one story home with three steps to enter. Lives with his and is independent with all ADLs and IADLs Transportation: Pt states drives self and states no transportation concerns at this time. can drive if restrictions are put in place. DME: States has the following DME: [employer], [employer], [employer] HHC/SNF: Previous home health after knee replacement but does not remember which company. No SNF history. Pt wishes to return home and states has no concerns with going home at time of discharge. Pt presents with diagnosis of alcoholism. SW inquired about alcohol use and pt states I don't keep track. Upon further inquiry pt does states he drinks daily but reveals no other information. SW attempted to provide information on programs to assist pt with alcohol cessation, however pt denies need for resources indicating drinking does not interfere with his life. Pt made aware that SW will remain available should he change his mind. PLAN: Home with , anticipate no needs. KJ Griffith
--- NOTE | 2020-12-27 12:23 | CASEMGMT ---
JOHANNA SILVA NOTE: Pt will be discharging home on Brilinta. JOHANNA SILVA to room to talk with pt. Introduced self and role of JOHANNA SILVA. Brilinta 30-day savings card given to pt and instructed on use of card. Pt also instructed to talk with his elevator attendant if refills are not affordable to discuss other options that are more affordable. Pt voices understanding and denies having any questions at this time. Graeme GREER RN CM
--- NOTE | 2020-12-27 17:04 | PCM.PN.BLA ---
Progress Note Patient was seen and examined this morning. He denied any new call planes. No more chest pain. Vitals were reviewed, appears stable except for mild tachycardia Patient came in with chest pain and had ST segment elevation in lead III, some reciprocal changes in the lateral leads, as well as V1 and V2. Patient was taken to the cardiac cath and he received 3 stents to the RCA On aspirin, statin, beta-richard, lisinopril, Brilinta STROKE Vital Signs/Narrative: Vital Signs Temp Pulse Resp BP BP Pulse Ox 12/27/20 17:00 115 H 21 H 143/90 H 96 12/27/20 16:00 98.5 F 100 19 H 141/78 H 95 12/27/20 15:00 91 15 129/84 H 94 12/27/20 14:00 99 26 H 117/91 H 96
[2020-12-27] MEDS: Carvedilol 3.125 MG TABLET PO (18:14)
[2020-12-27] MEDS: Phenobarbital 32.4 MG Tablet 97.2 MG PO ×2 (18:14→21:07)
[2020-12-27] MEDS: Glycerin/Hypromellose/PEG400 15 ml Bottle 2 DRP EACH EYE (18:54)
[2020-12-27] MEDS: Atorvastatin Calcium 40 MG Tablet PO (21:07)
[2020-12-28] VITALS (12 sets, daily range): BP systolic 90–128; BP diastolic 63–89; PULSE 84–102; RESP 11–22; TEMP 36.2–37.1; O2SAT 94–97
[2020-12-28 04:46] LABS: Hematocrit 43.5 % (40-54); Hemoglobin 14.5 g/dL (13.0-16.5); Mean Corp Hgb Conc 33.3 g/dL (32-36); Mean Corpuscular Hgb 34.9 pg (27.0-32.0); Mean Corpuscular Volume 104.8 fL (80-94); Mean Platelet Vol. 8.8 fl (6.2-12.0); Platelet Count 242 K/mm3 (150-450); RBC Distribution Width CV 12.5 % (11.6-14.6); RBC Distribution Width SD 47.2 fl (35.1-43.9); Red Blood Count 4.15 M/mm3 (4.6-6.2); White Blood Count 7.3 K/mm3 (4.4-11.0)
[2020-12-28 05:08] LABS: ALB/GLOB Ratio 0.8 RATIO (0.9-2.4); AST(SGOT) 45 U/L (15-37); Alanine Aminotransfer ALT/SGPT 31 U/L (16-61); Albumin, Serum 2.8 g/dL (3.2-5.0); Alkaline Phosphatase 93 U/L (45-117); Anion Gap 6 (5-15); BUN 7 mg/dL (7-18); BUN/Creat Ratio 10.1 RATIO (10-20); Calcium,Total 8.2 mg/dL (8.5-10.1); Chloride 104 mmol/L (98-107); Creatinine, Serum 0.69 mg/dL (0.70-1.30); EST Glomerular Filtration Rate 122 mL/min (>60); Est Glom Filt Rate - Afr Amer 147 mL/min (>60); Estimated Creatinine Clearance 103.26 ml/min; Globulin 3.3 g/dL (2.2-4.2); Glucose 103 mg/dL (74-106); Potassium 3.8 mmol/L (3.5-5.1); Protein, Total 6.1 g/dL (6.4-8.2); Sodium Level 136 mmol/L (136-145)
[2020-12-28] MEDS: Phenobarbital 32.4 MG Tablet 97.2 MG PO (05:20)
[2020-12-28] MEDS: Aspirin E.C. 81 MG Tablet PO (08:03)
[2020-12-28] MEDS: TICAGRELOR 90 MG TABLET PO (08:03)
[2020-12-28] MEDS: Thiamine Hydrochloride 100 MG Tablet PO (08:04)
[2020-12-28] MEDS: Folic Acid 1 MG Tablet PO (08:04)
--- NOTE | 2020-12-28 08:08 | DCINST_ITS ---
You will use the following diet at home:: Cardiac Your food should be the consistency of: Regular Your liquids should be the consistency of: Regular/Thin Discharge Activity: Return to Normal Activity Call your doctor if you observe: Fever of 101 or Higher, Shortness of breath, Dizziness, Fainting spells, Swelling in the ankles, Chest pain, Increased palpitations (irregular heartbeat) Allergies/Adverse Reactions: Allergies No Known Allergies Allergy (Verified 12/27/20 03:51) Medications to take at Discharge Aspirin E.C. [Ecotrin] 81 mg PO DAILY@0800 30 Days #30 tab 12/27/20 Atorvastatin Calcium [Lipitor] 40 mg PO QHS 30 Days #30 tab 12/27/20 Carvedilol [Coreg (Beta Mervin)] 3.125 mg PO BID 30 Days #60 tab 12/27/20 Lisinopril [Zestril] 10 mg PO DAILY 12/27/20 Ticagrelor [Brilinta] 90 mg PO BID 30 Days #60 tab 12/27/20 The following prescriptions were given: Ticagrelor [Brilinta] 90 mg PO BID 30 Days #60 tab Transmission Status: Received by [facility]/pharmacy #[id number] Carvedilol [Coreg (Beta Mervin)] 3.125 mg PO BID 30 Days #60 tab Transmission Status: Received by [facility]/pharmacy #[id number] Aspirin E.C. [Ecotrin] 81 mg PO DAILY@0800 30 Days #30 tab Transmission Status: Received by [facility]/pharmacy #[id number] Atorvastatin Calcium [Lipitor] 40 mg PO QHS 30 Days #30 tab Transmission Status: Received by [facility]/pharmacy #[id number] Primary Care Physician: Hugh Ramos [Primary Care Provider] - Please follow up with your Primary Care Physician in: 3-5 days Test Results: Test results from this visit will be discussed in further detail at your follow- up appointment, if applicable. Please Follow Up With: Cardiology When: 2 weeks
[2020-12-28] MEDS: Lisinopril 10 MG Tablet PO (10:04)
[2020-12-28] MEDS: Carvedilol 3.125 MG TABLET PO (10:04)
--- NOTE | 2020-12-28 10:18 | DS.PCM_ITS ---
Discharge Date and Diagnosis Date of Admission: 12/27/20 Date of Discharge: 12/28/20 - Secondary Discharge Diagnosis Chronic Problems: Chronic Problems (Last Updated 12/27/20 @ 18:[address] Oswaldo Redd MD) Presence of stent in coronary artery (Chronic ~12/27/20) Successful placement of drug-eluting stent 2.25 x 32 mm Synergy distal RCA, overlap with 2.25 mm x 32 mm Synergy stent to the mid RCA, overlap with 2.75 x 20 mm Synergy stent to the proximal RCA per cath 12/27/20 Atherosclerotic heart disease of [place] coronary artery without angina pectoris (Chronic) Hospital Course and Treatment Imaging Results: Clinical Impression(s) from Imaging Studies Chest X-Ray 12/27/20 03:54 IMPRESSION: Normal x-ray examination of the chest. Electronically Signed: Domingo Mendoza DO at 4:23 EST Tel , Service support , echo: Interpretation Summary Normal LV size. Left ventricular systolic function is normal. The estimated ejection fraction is 65 %. Stage 1 diastolic dysfunction. Contrast injection was performed. PCI Cardiac Cath Report PCI Report: Procedure report; 1. Successful placement of drug-eluting stent 2.25 x 32 mm Synergy distal RCA, overlap with 2.25 mm x 32 mm Synergy stent to the mid RCA, overlap with 2.75 x 20 mm Synergy stent to the proximal RCA. 2. Occluded proximal RCA with calcification and DON 0 flow 3. Post PCI following stent placement achievement of 0% stenosis and DON-3 flow in the RCA. 4. Moderate sedation. 5. Placement of TR band to close the right radial artery arteriotomy site. Consults: Cardiology Operations: None Procedures: 2-D Echocardiogram, Cardiac catheterization Summary of Care Provided: Per HPI: The patient is a 65 year old M with a significant history of hy pertension and alcoholism who presents to the emergency department with excruciating persistent lower substernal chest pain that was present when he woke up at around 1 AM of the day of presentation. He described this pain as burning. The pain is nonradiating. He denies any aggravating or ameliorating factors to the pain. Three weeks ago he had this pain but it was intermittent; and he attributed that pain to acid reflux. Patient arrived at emergency department by private vehicle. EKG at emergency department showed ST elevation IN. STEMI alert was called. Hospital Course: 1. Non-STEMI status post 3 stents to RCA/YEV-11-soyy-old male presented to the hospital with chest pain that was going on for about 3 weeks. He was taken straight to the Senior Accounting Manager from the ER and had 3 stents placed in his RCA. He does have disease in his left main coronary artery with extension of calcification in the proximal mid LAD and he does have a 20 to 30% stenosis in his left circumflex. He is chest pain is completely resolved and he would like to go home today. I did discuss with him the importance of continuing his aspirin and Brilinta, and that if his Brilinta is too expensive on refill that he is to not stop taking it but to notify cardiology to be placed on Plavix. He expressed understanding of the importance of being on the 2 antiplatelets. We will continue with his home new blood pressure medications of Coreg, and will continue with his Lipitor. Also continue with his lisinopril. Recommend following up with his PCP in 3 to 5days. I discussed with him the plan for discharge today he expressed understanding of the risk benefits of going home. Discharge was also discussed with cardiology who was okay with him going home today. 2. Alcoholism-he wants to go home today, recommend outpatient rehab or AA. - Physical Exam Vitals/I&O's: Vital Signs Temp Pulse Resp BP Pulse Ox 97.2 F L 102 H 18 113/63 94 12/28/20 08:00 12/28/20 09:00 12/28/20 09:00 12/28/20 09:00 12/28/20 09:00 Oxygen Delivery Method Room Air Weight: 173 lb 11.588 oz Body Mass Index (BMI) 25.8 Intake and Output for Last 24 Hours 12/26/20 12/27/20 12/28/20 23:59 23:59 23:59 Intake Total 1250 / 1450 475 / 475 Output Total 1150 / 1525 775 / 775 Balance 100 / -75 -300 / -300 General: Alert, Oriented x3, Cooperative, No apparent distress HEENT: Atraumatic, PERRLA, EOMI, Normocephalic Oral: Moist Mucosa Neck: Supple, No JVD Lungs: Clear to auscultation, Normal air movement, No rhonchi, No wheeze, No rales Cardiovascular: Regular rate, Regular Rhythm, Normal S1, Normal S2, No murmurs Abdomen: Soft, Non Tender, Non-Distended, No Hepato-splenomegaly Extremities: No edema, Capillary Refill Less than 3 Seconds Skin: No rashes, No breakdown Neurological: Neuro grossly intact, Sensory exam intact to light touch and pain Psych/Mental Status: Normal Affect, Appropriate Laboratory Results 12/27/20 10:00: Troponin I 18.000 H* 12/28/20 04:15: WBC 7.3, RBC 4.15 L, Hgb 14.5, Hct 43.5, MCV 104.8 H, MCH 34.9 H , MCHC 33.3, RDW Std Deviation 47.2 H, RDW Coeff of Anabella 12.5, Plt Count 242, MPV 8.8 12/28/20 04:15: Sodium 136, Potassium 3.8, Chloride 104, Carbon Dioxide 26.0, Anion Gap 6, BUN 7, Creatinine 0.69 L, Estim Creat Clear Calc 103.26, Est GFR (MDRD) Af Amer 147, Est GFR (MDRD) Non-Af 122, BUN/Creatinine Ratio 10.1, Glucose 103, Calcium 8.2 L, Total Bilirubin 0.60, AST 45 H, ALT 31, Alkaline Phosphatase 93, Total Protein 6.1 L, Albumin 2.8 L, Globulin 3.3, Albumin/Globulin Ratio 0.8 L Current Medications Aspirin (Aspirin E.C. 81 Mg Tablet) 81 mg PO DAILY@0800 [facility] Last Admin: 12/28/20 08:03 Dose: 81 mg Documented by: Atorvastatin Calcium (Atorvastatin Calcium 40 Mg Tablet) 40 mg PO QHS [facility] Last Admin: 12/27/20 21:07 Dose: 40 mg Documented by: Atropine Sulfate (Atropine Sulfate 1 Mg/10 Ml Syringe) 0.5 mg IV UD PRN PRN Reason: HR <50 bpm Carvedilol (Carvedilol 3.125 Mg Tablet) 3.125 mg PO BID [facility] Last Admin: 12/28/20 10:04 Dose: 3.125 mg Documented by: Dicyclomine HCl (Dicyclomine 10 Mg Capsule) 20 mg PO Q6H PRN PRN PRN Reason: abdominal discomfort Folic Acid (Folic Acid 1 Mg Tablet) 1 mg PO DAILY@0800 [facility] Last Admin: 12/28/20 08:04 Dose: 1 mg Documented by: Gabapentin (Gabapentin 300 Mg Capsule) 300 mg PO Q8H PRN PRN PRN Reason: moderate to severe anxiety Hydroxyzine Pamoate (Hydroxyzine Betsy 25 Mg Capsule) 50 mg PO Q4H PRN PRN PRN Reason: mild anxiety Sodium Chloride () 250 mls @ 15 mls/hr IV .[id number] PRN PRN Reason: Saline Flush Sodium Chloride () 250 mls @ 15 mls/hr IV .[id number] PRN PRN Reason: Additional IVPB Infusion Lisinopril (Lisinopril 10 Mg Tablet) 10 mg PO DAILY [facility] Last Admin: 12/28/20 10:04 Dose: 10 mg Documented by: Loperamide HCl (Loperamide 2 Mg Capsule) 2 mg PO Q4H PRN PRN PRN Reason: LOOSE STOOLS Ondansetron HCl (Ondansetron 4 Mg/2 Ml Vial) 4 mg IV Q8H PRN PRN PRN Reason: NAUSEA/VOMITING Ondansetron HCl (Ondansetron 8 Mg Tablet) 8 mg PO Q8H PRN PRN PRN Reason: NAUSEA Phenobarbital (Phenobarbital 32.4 Mg Tablet) 97.2 mg PO Q4H [facility]; Taper Stop: 01/01/21 01:59 Last Admin: 12/28/20 10:04 Dose: Not Given Documented by: Sodium Chloride (0.9% Saline Lock 10 Ml Syringe) 10 - 40 ml IV UD PRN PRN Reason: SALINE FLUSH Last Admin: 12/27/20 06:52 Dose: 20 ml Documented by: Sodium Chloride (0.9% Normal Saline 500 Ml Iv.Soln.) 500 ml IV BOLUS PRN PRN Reason: VASO-VAGAL PROTOCOL Thiamine HCl ([facility]iamine Hydrochloride 100 Mg Tablet) [facility] Admin: 12/28/20 08:04 Dose: 100 mg Documented by: Ticagrelor (Ticagrelor 90 Mg Tablet) 90 mg PO BID [facility] Last Admin: 12/28/20 08:03 Dose: 90 mg Documented by: Trazodone HCl (Trazodone 100 Mg Tablet) 100 mg PO QHS PRN PRN Reason: INSOMNIA Discharge Activity: Return to Normal Activity Call your doctor if you observe: Fever of 101 or Higher, Shortness of breath, Dizziness, Fainting spells, Swelling in the ankles, Chest pain, Increased palpitations (irregular heartbeat) Home Medications: Medications to take at Discharge Aspirin E.C. [Ecotrin] 81 mg PO DAILY@0800 30 Days #30 tab 12/27/20 Atorvastatin Calcium [Lipitor] 40 mg PO QHS 30 Days #30 tab 12/27/20 Carvedilol [Coreg (Beta Mervin)] 3.125 mg PO BID 30 Days #60 tab 12/27/20 Lisinopril [Zestril] 10 mg PO DAILY 12/27/20 Ticagrelor [Brilinta] 90 mg PO BID 30 Days #60 tab 12/27/20 Following Prescriptions Were Given to Patient: Ticagrelor [Brilinta] 90 mg PO BID 30 Days #60 tab Transmission Status: Received by [facility]/pharmacy #[id number] Carvedilol [Coreg (Beta Mervin)] 3.125 mg PO BID 30 Days #60 tab Transmission Status: Received by [facility]/pharmacy #[id number] Aspirin E.C. [Ecotrin] 81 mg PO DAILY@0800 30 Days #30 tab Transmission Status: Received by [facility]/pharmacy #[id number] Atorvastatin Calcium [Lipitor] 40 mg PO QHS 30 Days #30 tab Transmission Status: Received by [facility]/pharmacy #[id number] Primary Care Physician: Hugh Ramos [Primary Care Provider] - Please follow up with your Primary Care Physician in: 3-5 days Please Follow Up With: Paxton Schmitz NP, [facility] When: 2 weeks Disposition: Home Minutes spent on discharge:: 35 Patient Condition:: Stable Medical Necessity - Tobacco Use Smoking Status: Never smoker Meaningful Use Info Meaningful Use Diagnoses (Choose all that apply): None applicable Inpatient E&M: 48410 Disch Hosp
== END 2020-12-28 11:05 | disposition home or self-care (01) | DRG 247 ==
LOC: ED 04:27 → ICU 04:51
PROVIDERS: Admitting Provider Hospitalist; Emergency Provider Emergency Medicine; Referring Provider Internal Medicine Interventional Cardiology; Visit Provider Family Medicine
DX: I21.4 Non-ST elevation (NSTEMI) myocardial infarction (principal); I25.10 Atherosclerotic heart disease of native coronary artery without angina pectoris; I10 Essential (primary) hypertension; F10.20 Alcohol dependence, uncomplicated; Z79.899 Other long term (current) drug therapy
CPT/HCPCS: 71045; 80048; 80053; 84484; 85025; 85027; 85610; 85730; 92928; 93005; 93306; 93454; 99285; J7030; J7040; Q9957; Q9967; A4216; C1725; C1769; C1874; C1887; C1894; C8929; C9600; J2405

== ENCOUNTER 2021-01-23 07:46 | Day surgery (SDC) | payer MEDICARE, BC, SELFPAY ==
[2021-01-08 15:57] VITALS: BMI 26.6
[2021-01-22 12:38] VITALS: BMI 26.6
[2021-01-23] VITALS (13 sets, daily range): BP systolic 102–148; BP diastolic 65–78; PULSE 79–96; RESP 16–18; TEMP 36.2–36.8; O2SAT 93–97; BMI 25.5
--- NOTE | 2021-01-23 07:00 | HP_ITS ---
HPI HPI History of Present Illness Surgical H&P: Yes Details: This is a 65-year-old male presents the office today for a cardiovascular outpatient follow-up. He was evaluated at [facility] in December [address] elevation myocardial infarction. He underwent drug-eluting stent to distal RCA overlapped with stent to mid RCA overlapped with stent to proximal RCA. It was recommended to undergo an elective staged PCI to LAD and left circumflex 1 to 2 weeks post discharge. He also has a history of hypertension as well as family history of coronary artery disease with both parents. He denies chest, arm, jaw, or neck discomfort. His exercise tolerance is stable. He denies symptoms of CHF, palpitations, lightheadedness, dizziness, near syncope, or syncopal episodes. He denies edema or claudication issues. He denies orthopnea, PND, fever, chills, chronic cough, blood in urine, blood in stool, epistaxis, myalgia, or unexplainable fatigue. Intake Vital Signs 01/08/21 Height 5 ft 8 in 01/08/21 Weight: 175 lb 01/08/21 BMI 26.6 01/08/21 BP 140/87 H 01/08/21 Blood Pressure Location Rt brachial 01/08/21 Position Sitting 01/08/21 Respiration 18 01/08/21 Pulse 89 01/08/21 Pulse Source Monitor 01/08/21 Pulse Oximetry (%) 98 Intake Visit Reasons: 2 WK S/P STEMI (BELAL SAW) Repairer Required: No Is patient in pain?: No Allergies No Known Allergies Allergy (Verified 01/08/21 15:55) Medications Aspirin E.C. [Ecotrin] 81 mg PO DAILY@0800 30 Days #30 tab 12/27/20 [Rx Confirmed 01/08/21] Atorvastatin Calcium [Lipitor] 40 mg PO QHS 30 Days #30 tab 12/27/20 [Rx Confirmed 01/08/21] Carvedilol [Coreg (Beta Mervin)] 3.125 mg PO BID 30 Days #60 tab 12/27/20 [Rx Confirmed 01/08/21] Lisinopril [Zestril] 10 mg PO DAILY 12/27/20 [History Confirmed 01/08/21] Ticagrelor [Brilinta] 90 mg PO BID 30 Days #60 tab 12/27/20 [Rx Confirmed 01/08/21] [facility] Medical History (Updated 01/09/21 @ 16:54 by Paxton Schmitz ENERGY EFFICIENCY SPECIALIST, ENERGY EFFICIENCY SPECIALIST-C) Presence of stent in coronary artery (Chronic ~12/27/20) Atherosclerotic heart disease of [place] coronary artery without angina pectoris (Chronic) Hypertension (Chronic) Surgical History (Updated 12/27/20 @ 17:29 by Nadira Sumner) Presence of coronary angioplasty implant and graft (Chronic ~12/27/20) Family History (Updated 01/08/21 @ 16:10 by Paxton Schmitz ENERGY EFFICIENCY SPECIALIST, ENERGY EFFICIENCY SPECIALIST-C) Mother CAD (coronary artery disease) onset 60-70 Father CAD (coronary artery disease) Dropped over in his 80s. Social History (Updated 01/09/21 @ 16:54 by Paxton Schmitz ENERGY EFFICIENCY SPECIALIST, ENERGY EFFICIENCY SPECIALIST-C) Smoking Status: Never smoker ROS Const Const: Negative for fatigue, weakness, body ache, fever(s) or chills ENT ENT: Negative for dizziness Cardio Chest Pain: No Palpitations: No Edema: None Muscle aches with walking: None Resp Respiratory: Negative for SOB with activity, SOB at rest, SOB orthopnea\SOB lying down or paroxysmal nocturnal dyspnea GI GI: Negative nausea, vomiting blood/hematemesis, bright, red blood in stools or black,tarry stools : Negative for hematuria or frequent nighttime urination/ nocturia Musc Musc: Negative for muscle aches/ myalgia Skin Skin: Negative non-healing lesions or rash Neuro Neuro: Negative for dizziness, lightheadedness, near syncope, syncope, orthostatic symptoms or weakness Endo Endo: Negative for fatigue Allergy Allergy/Immunology: Negative for rash Cardiology Exam Const Appearance: cooperative, healthy appearing, comfortable and no acute distress Nutritional Appearance: average body habitus and well nourished Orientation: alert, awake and oriented x3 Head Head: normal to inspection Ears: hearing grossly normal bilaterally Nose: external nose normal Face and Sinus: face symmetric Mouth: oral mucosae normal Eyes General: appearance normal, both eyes and all related structures Eyelids: eyelids normal EOM: EOM intact bilaterally Neck Neck: normal visual inspection and no JVD Carotids: normal carotid upstroke Chest Chest inspection: normal inspection of the chest, symmetric chest movement and normal respiratory effort; negative cough Auscultation: Bilateral: Clear to Auscultation Cardio Rate: regular rate Rhythm: regular rhythm Heart sounds: S1 normal and S2 normal; negative rub, gallop or murmur GI GI: normal to inspection Neuro General: alert, awake, oriented x3 and CN's II-XI intact bilaterally Skin Skin: no rashes or lesions noted Extremities Pulses: Normal: Right Posterior Tibial Pulse, Left Posterior Tibial Pulse, Right Radial Pulse, Left Radial Pulse Bruits: Negative: Right Radial Bruit Lower Extremity Edema: None: Bilateral Psych Psychological: normal affect Assessment & Plan 1. Atherosclerosis of [place] coronary artery of [place] heart without angina pectoris I25.10 Successful placement of drug-eluting stent 2.25 x 32 mm Synergy distal RCA, overlap with 2.25 mm x 32 mm Synergy stent to the mid RCA, overlap with 2.75 x 20 mm Synergy stent to the proximal RCA per cath 12/27/20 Plan Patient states feeling well since stenting. He is agreeable to proceed with staged intervention. This will be arranged for him. He will continue with aspirin, atorvastatin, Coreg, lisinopril, and Brilinta. His most recent echocardiogram from 03/16/2021 showed an ejection fraction of 65% stage I diastolic dysfunction. Orders Orders: Stent Today 2. Presence of stent in coronary artery Z95.5 Successful placement of drug-eluting stent 2.25 x 32 mm Synergy distal RCA, overlap with 2.25 mm x 32 mm Synergy stent to the mid RCA, overlap with 2.75 x 20 mm Synergy stent to the proximal RCA per cath 12/27/20 Plan He will continue current medical therapy he is reminded the importance of risk factor and lifestyle modification. Orders Orders: Stent Today 3. Essential hypertension I10 Plan His blood pressure slightly elevated today in office. This is thought to be on account of current office visit. Over time, his lisinopril and/or Coreg can be adjusted to control blood pressure. This will be reassessed at next office appointment after staged procedure. Orders Orders: Stent Today 4. Hyperlipidemia, unspecified hyperlipidemia type E78.5 Plan This is being monitored by primary care physician his most recent LDL in our system in October 2019 was noted to be 81. He was informed that an ideal goal is LDL of 70 and below. If he does not meet LDL goal, we can could consider increasing atorvastatin to 80 mg p.o. daily bearing in mind myalgia. Orders Orders: Stent Today Plan Detail Additional Comments Thank you for allowing us to participate in the patients plan of care, if you have any questions please do not hesitate to call. This note was generated using a voice recognition system and there may be incorrect words, spelling or punctuation that were not noted when reviewing the office note prior to saving. Follow Up 1st-2nd week of February (ENERGY EFFICIENCY SPECIALIST/PA) Coding Level of Care Code Off vis,est,level 3 Diagnoses Atherosclerosis of [place] coronary artery of [place] heart without angina pectoris I25.10 ??[place] vs. transplanted heart: [place] heart Presence of stent in coronary artery Z95.5 Essential hypertension I10 Hyperlipidemia, unspecified hyperlipidemia type E78.5 ??Hyperlipidemia type: unspecified Coding Level of Care Code Off vis,est,level 3 Diagnoses Atherosclerosis of [place] coronary artery of [place] heart without angina pectoris I25.10 ??[place] vs. transplanted heart: [place] heart Presence of stent in coronary artery Z95.5 Essential hypertension I10 Hyperlipidemia, unspecified hyperlipidemia type E78.5 ??Hyperlipidemia type: unspecified Supplemental Info Supplemental Information Echocardiogram 12/27/2020: Interpretation Summary Normal LV size. Left ventricular systolic function is normal. The estimated ejection fraction is 65 %. Stage 1 diastolic dysfunction. Contrast injection was performed. Heart catheterization from 12/27/2020: Procedure report; 1. Successful placement of drug-eluting stent 2.25 x 32 mm Synergy distal RCA, overlap with 2.25 mm x 32 mm Synergy stent to the mid RCA, overlap with 2.75 x 20 mm Synergy stent to the proximal RCA. 2. Occluded proximal RCA with calcification and DON 0 flow 3. Post PCI following stent placement achievement of 0% stenosis and DON-3 flow in the RCA. 4. Moderate sedation. 5. Placement of TR band to close the right radial artery arteriotomy site. Preprocedure diagnosis; This patient is a 65-year-old had ongoing symptoms of epigastric and chest discomfort patient, said he thought this is acid reflux nearly for 3 weeks This afternoon he had a similar discomfort and when he went to bed around 9:00 PM he was still having mild discomfort and woke him up in the morning around 1:00 AM with severe retrosternal chest pain with some sweating. Brought into the ER Where he was seen by the ER physician started on morphine heparin Brilinta and aspirin. Patient had significant family history of CAD both parents had a history of myocardial infarction and also had a history of hypertension and has been on NICHELLE inhibitor with lisinopril Patient is not smoker, he is retired and he lives with his . EKG showed [address] elevation, only in lead III, there were no ST elevation in lead II and aVF and less than 1 mm in lead III and symptoms have been ongoing for at least 3 weeks there is some reciprocal change noted in the lateral lead I aVL and also in V1 and V2 based on his clinical presentation and he also having still symptoms of chest pain when I came to evaluate him in the ER ,I decided to take him to the [facility] however he does not fulfill the criteria of ST elevation MN. Clinical diagnosis of acute coronary syndrome with ongoing symptoms of chest pain and change in the EKG, which does not fulfill the criteria for STEMI Findings of coronary angiography; 1. Left main coronary artery is heavily calcified, bifurcating into left anterior descending the left circumflex Angiographically there is no obstructive atherosclerosis of the left main coronary artery 2. Extension of calcification to the proximal and the mid LAD which is a moderate-sized vessel, with diffuse atherosclerosis noted in the mid LAD at least around 20 mm in length, with a 70% stenosis in the mid LAD. #3 left circumflex proximally calcified with around 20 to 30% stenosis, OM1 is a moderate-sized vessel with a focal stenosis of around 80% 4. Collaterals were noted from the septal branches of the LAD to the distal RCA which is occluded 5. Occluded proximal RCA with calcified proximal RCA Following the intervention of the culprit lesion in the RCA patient symptoms of chest pain improved significantly and he remained remained stable hemodynamically. Conclusion and recommendations; 1. We will evaluate this patient by echocardiogram today 2. Patient will be on dual antiplatelet therapy with Brilinta/aspirin 81 mg for 1 year 3. Patient had a significant atherosclerosis of 2 other vessels which is diffuse atherosclerosis of the mid LAD of around 70% and a focal lesion of the OM 1 around 80% stenosis Elective PCI of the LAD and the left circumflex, 1 to 2 weeks post discharge. Patient has been on lisinopril for hypertension, he is not a smoker he does have significant family history of CAD mother had a history of myocardial infarction and father with an MN We will start on statin therapy, low-dose beta-mervin, and will continue on his lisinopril in addition to the dual antiplatelet therapy. Finding of cardiac catheterization and intervention explained in detail to the patient as well as his and patient will be admitted to the ICU. Labs LDL Cholesterol 81 mg/dL (0-130) 10/26/19 HDL Cholesterol 58 mg/dL (40-) 10/26/19 Triglycerides 117 mg/dL (-199) 10/26/19 VLDL Cholesterol 23 mg/dL (5-40) 10/26/19 Diagnostics Electrocardiogram 12/27/20 Echocardiogram 12/27/20 Chest X-Ray 12/27/20
--- NOTE | 2021-01-23 11:39 | PCI.CARDCATH ---
PCI Cardiac Cath Report PCI Report: Procedure performed; 1. Successful PCI of diffuse mid LAD 80% with predilatation and placement of a drug-eluting stent 2.5 x 24 and achievement of excellent result Prior to PCI mid LAD diffuse calcified with 80% stenosis and DON-3 flow, post predilatation and placement of a stent mid LAD stenosis reduced to 0% and maintain DON-3 flow. 2. Successful PCI of 80% stenosis of proximal OM1 with predilatation and placement of drug-eluting stent Synergy 2.75 x 16 mm, prior to PCI proximal OM1 80% stenosis focal lesion with DON-3 flow, post PCI reduction of stenosis from 80% to 0% and maintain DON-3 flow. Placement of TR band to maintain hemostasis of the right radial artery arteriotomy site. Preprocedure diagnosis Eben Rothman 65-year-old patient who had history of CAD and had a history of myocardial infarction with the recent PCI and stent of the right coronary artery he had heavily calcified LAD extending from proximal to mid LAD and had a diffuse atherosclerosis of the mid LAD and a focal lesion involving the moderate size OM1. Based on clinical presentation patient brought for elective PCI of 2 vessels which is a mid LAD in the proximal OM1. Consent risk-benefit of the procedure explained in detail to the patient patient agreed to proceed informed consent obtained And placed in the chart. Moderate sedation; Patient was given intravenous Versed intravenous fentanyl and p.o. procedure verbal. Interventional equipment and plan 1. 6 Ukrainian 3.5 guide 2. Run-through, extra floppy 180 cm straight wire 3. Hemorrhage MR 2 x 12 mm balloon Image MR 2 x 15 balloon 4. Drug-eluting stent Synergy 2.5 x 24 to the mid LAD 5. Synergy drug-eluting stent 2.75 x 16 mm to the proximal OM1. Procedure in detail; Patient brought to the Outside Cutter Hand in fasting state Right radial artery area prepped and draped in the usual sterile fashion We proceed with the guide catheter which is 6 Ukrainian EBU guide catheter cannulate the left main without difficulty, angiographic views were obtained identifying the lesion in the mid LAD in THAI, MCCANN cranial and caudal views, then we crossed the lesion with the run-through wire without difficulty, predilated the lesion by 2 x 15 mm balloon followed by placement of 2.5 x 24 mm drug-eluting stent up to 14 COLEEN with no evidence of dissection and achievement of excellent result Following this we used the same wire to cross the lesion in the proximal OM1. That will predilate the lesion by 2 x 12 mm balloon followed by placement of drug-eluting stent 2.75 x 16 mm up to 16 COLEEN and achievement of excellent result with no evidence of dissection or complication. Following this all catheter removed Patient was given Brilinta aspirin and also he was on heparin and ACT level was 252 TR band applied to right radial artery area with no complication in the Outside Cutter Hand Conclusion and recommendations; This patient had a history of a recent inferior myocardial infarction with PCI and stent of the right coronary artery, brought in today for elective PCI of 2 vessels mid LAD diffuse as well as and calcified as well as proximal OM1 which was performed in the Outside Cutter Hand today successfully with no complication. Patient will be admitted over the night in the progressive care unit and if he remains stable he can be discharged to follow-up with his primary equipment engineering technician. Deanna Champion MD,FACC,[facility] mud analysis well logging operator
--- NOTE | 2021-01-23 11:45 | EKG12_ITS ---
Test Reason : AM EKG Blood Pressure : / mmHG Vent. Rate : 083 BPM Atrial Rate : 083 BPM P-R Int : 138 ms QRS Dur : 082 ms QT Int : 392 ms P-R-T Axes : 054 055 011 degrees QTc Int : 460 ms Normal sinus rhythm Normal ECG When compared with ECG of 23-JAN-2021 12:32, MANUAL COMPARISON REQUIRED, DATA IS UNCONFIRMED Confirmed by ERASMO OLIVA, RUKHSANA ([id number]), film or videotape editor KATE BLANK ([id number]) on 01/25/2021 9:21:16 AM Referred By: JAVIER Confirmed By:RUKHSANA ZIMMERMAN MD
--- NOTE | 2021-01-23 12:53 | CRPHASE1_ITS ---
Patient Communication Former Patient:: Phase I - Staged PCI. Pt was seen 12/27/20 for rehab teaching Cardiac Rehabilitation Info Cardiac Rehabilitation Program Information: Cardiac Rehabilitation is important for patients like you who are recovering from a heart problem. Cardiac rehabilitation programs are recognized as integral to the continued care of the patient with coronary heart disease. The cardiac rehabilitation program is designed to optimize a patient's physical, psychological, and social functioning. Health critical care cns work in cardiac rehabilitation programs and assist you with getting the treatments you need to get stronger and healthier - like exercise, healthy eating habits, and medications. Cardiac rehabilitation has been show to help people with heart problems live longer and have better life enjoyment than people who do not go to cardiac rehabilitation. Please contact the Cardiac Rehabilitation Program at [facility] at in two weeks if you have not heard from them.
--- NOTE | 2021-01-23 12:55 | CRPH1.INSTRU ---
General Education CAD and cardiac anatomy and function:: Patient communicates acknowledgment - Staged PCI. Pt was seen 12/27/20 for rehab teaching
[2021-01-23] MEDS: 0.9% Normal Saline 1,000 ML 75 ML IV (15:58)
[2021-01-23] MEDS: Carvedilol 3.125 MG TABLET PO (20:45)
[2021-01-23] MEDS: Atorvastatin Calcium 40 MG Tablet PO (20:45)
[2021-01-24] VITALS: BP 114/65; PULSE 88; RESP 16; TEMP 36.7; O2SAT 96
[2021-01-24 02:54] VITALS: PULSE 85
[2021-01-24 05:05] LABS: Hematocrit 41.7 % (40-54); Hemoglobin 13.9 g/dL (13.0-16.5); Mean Corp Hgb Conc 33.3 g/dL (32-36); Mean Corpuscular Hgb 34.3 pg (27.0-32.0); Mean Platelet Vol. 9.2 fl (6.2-12.0); Platelet Count 199 K/mm3 (150-450); RBC Distribution Width CV 11.9 % (11.6-14.6); RBC Distribution Width SD 44.7 fl (35.1-43.9); Red Blood Count 4.05 M/mm3 (4.6-6.2)
[2021-01-24 05:36] LABS: AST(SGOT) 22 U/L (15-37); Alanine Aminotransfer ALT/SGPT 37 U/L (16-61); Albumin, Serum 3.1 g/dL (3.2-5.0); Alkaline Phosphatase 100 U/L (45-117); Anion Gap 6 (5-15); BUN 10 mg/dL (7-18); BUN/Creat Ratio 14.9 RATIO (10-20); Calcium,Total 8.4 mg/dL (8.5-10.1); Chloride 106 mmol/L (98-107); Creatinine, Serum 0.67 mg/dL (0.70-1.30); EST Glomerular Filtration Rate 126 mL/min (>60); Est Glom Filt Rate - Afr Amer 152 mL/min (>60); Estimated Creatinine Clearance 106.34 ml/min; Globulin 3.2 g/dL (2.2-4.2); Glucose 112 mg/dL (74-106); Potassium 3.7 mmol/L (3.5-5.1); Protein, Total 6.3 g/dL (6.4-8.2); Sodium Level 138 mmol/L (136-145)
[2021-01-24 06:57] VITALS: PULSE 79
[2021-01-24 07:32] VITALS: O2SAT 96
--- NOTE | 2021-01-24 08:03 | PN.CARD_ITS ---
Subjectve: Patient seen and evaluated. Appears to be doing well. Objective: Vital Signs Temp Pulse Resp BP Pulse Ox 98.0 F 79 16 114/65 96 01/24/21 00:00 01/24/21 06:57 01/24/21 00:00 01/24/21 00:00 01/24/21 07:32 Oxygen Delivery Method Room Air Weight: 168 lb Body Mass Index (BMI) 25.5 Intake and Output for Last 24 Hours 01/22/21 01/23/21 01/24/21 23:59 23:59 23:59 Intake Total 912.5 / 912.5 547.5 / 547.5 Output Total 925 / 925 Balance -12.5 / -12.5 547.5 / 547.5 General: Awake, Alert, Oriented x 3 HEENT: PERRL, EOMI, Sclera Non Icteric Neck: Supple, Good ROM, No Lymph Node Enlargement Lungs: Clear to auscultation Cardiovascular: Regular Rhythm, Normal S1, Normal S2, No Murmurs, No Rubs, No Gallops Vascular: No Carotid Bruits, Normal Femoral Pulses, Normal Radial Pulses, Normal Dorsalis Pedal Pulse, Normal Posterior Tibial Pulses Abdomen: Bowel Sounds Present, Soft, Non Tender, No HSM, No Organomegaly Extremities: No Cyanosis, No Clubbing, No edema Musculoskeletal: No Erythema Skin: No Rashes Lymphatic: No Lymph Node Enlargement Neurological: No Focal Motor or Sensory Deficit Psych/Mental Status: Appropriate 01/24/21 04:46: WBC 7.0, RBC 4.05 L, Hgb 13.9, Hct 41.7, MCV 103.0 H, MCH 34.3 H , MCHC 33.3, Plt Count 199, MPV 9.2 01/24/21 04:46: Sodium 138, Potassium 3.7, Chloride 106, Carbon Dioxide 26.0, Anion Gap 6, BUN 10, Creatinine 0.67 L, Est GFR (MDRD) Af Amer 152, Est GFR (MDRD) Non-Af 126, BUN/Creatinine Ratio 14.9, Glucose 112 H, Calcium 8.4 L, Total Bilirubin 0.70 Rhythm: EKG: ECHO: Stress Test: Cardiac Cath: PCI: CT Surgery: Holter monitor: EPS: PPM: CXR: Chest CT Scan: Medical Necessity - Tobacco Use Smoking Status: Never smoker Tobacco Use: Non-smoker Assessment/Plan 1. Status post angioplasty and stenting of the left anterior descending artery and circumflex artery. Patient did well overnight. Will discharge today for outpatient follow-up on same medications. To continue cardiac rehabilitation.
--- NOTE | 2021-01-24 08:04 | DCINST_ITS ---
Discharge Diet: No Restrictions - You may continue your normal diet., Low fat/ Low Cholesterol Lifting Restrictions: 10 pounds and also avoid any pushing or pulling for 3 days after your test. Additional Activity Instructions:: You must have someone drive you home. Do not drive until instructed by your doctor. You must have someone stay with you all night after your test. Rest in bed or on the couch until the next morning. Limit the number of times you go up and down stairs the day of your test. Apply pre ssure to the puncture site if you sneeze or cough. Call your doctor if your incision/area has: Increased Pain/ Swelling, Increased Redness, Foul Smelling Discharge, Swelling at the incision site Call your doctor if you observe: Fever of 101 or Higher Additional Dressing/Incision Instructions:: Keep the dressing (bandage) on until the next morning. You may then shower, but do not take a tub bath for 5 days after your test. It is normal to have some tenderness and discomfort at the puncture site. Sometimes bruising also occurs. However, if pain, numbness, or coldness occurs below the puncture site (in your leg, toes, arms or fingers) call your doctor at once. You may have a small, marble sized knot at the puncture site. This is normal. Do not rub it. It will go away in 4-6 weeks. Bleeding can occur from the area where the puncture was done. Blood may spurt or drip from the site. If blood spurts, apply pressure right away to stop bleeding and call 911. Although rare, bleeding into the tissue (hematoma) can also occur. If this happens, a large, firm area goose egg under the skin will appear. If any of these occur, lie down as flat as you can and have someone apply firm pressure to the cath site with a gauze pad or a clean washcloth for 10-15 minutes. Call 911 or go to the Emergency Department. Allergies/Adverse Reactions: Allergies No Known Allergies Allergy (Verified 01/08/21 15:55) Medications to take at Discharge Aspirin [Low Dose Aspirin EC] 81 mg PO DAILY 01/23/21 Atorvastatin Calcium [Lipitor] 40 mg PO QHS 01/23/21 Carvedilol 3.125 mg PO BID 01/23/21 Lisinopril 10 mg PO DAILY 01/23/21 Ticagrelor [Brilinta] 90 mg PO BID 01/23/21 Primary Care Physician: Hugh Ramos [Primary Care Provider] - Test Results: Test results from this visit will be discussed in further detail at your follow- up appointment, if applicable. Please Follow Up With: The heart group offices and cardiac rehabilitation. You will be sent an ap Proposed Discharge Date: 01/24/21 Cardiac Rehabilitation Info Cardiac Rehabilitation Program Information: Cardiac Rehabilitation is important for patients like you who are recovering from a heart problem. Cardiac rehabilitation programs are recognized as integral to the continued care of the patient with coronary heart disease. The cardiac rehabilitation program is designed to optimize a patient's physical, psychological, and social functioning. Health child care centre manager work in cardiac rehabilitation programs and assist you with getting the treatments you need to get stronger and healthier - like exercise, healthy eating habits, and medications. Cardiac rehabilitation has been show to help people with heart problems live longer and have better life enjoyment than people who do not go to cardiac rehabilitation. Please contact the Cardiac Rehabilitation Program at [facility] at in two weeks if you have not heard from them.
[2021-01-24 08:28] VITALS: BP 117/81; PULSE 87; RESP 16; TEMP 36.8; O2SAT 95
[2021-01-24] MEDS: TICAGRELOR 90 MG TABLET PO (08:30)
[2021-01-24] MEDS: Aspirin E.C. 81 MG Tablet PO (08:30)
[2021-01-24] MEDS: Lisinopril 10 MG Tablet PO (08:30)
[2021-01-24] MEDS: Carvedilol 3.125 MG TABLET PO (08:30)
--- NOTE | 2021-01-24 09:13 | PHA.DC.MR ---
Pharmacy Service has performed discharge medication reconciliation for this patient. No new medications at time of discharge review. Medications reviewed are from previously reported home medications. Home Medications Aspirin [Low Dose Aspirin EC] 81 mg PO DAILY 01/23/21 Atorvastatin Calcium [Lipitor] 40 mg PO QHS 01/23/21 Carvedilol 3.125 mg PO BID 01/23/21 Lisinopril 10 mg PO DAILY 01/23/21 Ticagrelor [Brilinta] 90 mg PO BID 01/23/21 The patient's discharge medication list was reviewed for discrepancies and discrepancies were resolved.
--- NOTE | 2021-01-24 10:00 | EKG12_ITS ---
Test Reason : POST CATH Blood Pressure : / mmHG Vent. Rate : 092 BPM Atrial Rate : 092 BPM P-R Int : 138 ms QRS Dur : 080 ms QT Int : 388 ms P-R-T Axes : 056 060 015 degrees QTc Int : 479 ms Normal sinus rhythm Normal ECG When compared with ECG of 28-DEC-2020 05:08, No significant change was found Confirmed by ERASMO OLIVA, RUKHSANA ([id number]), script editor KATE BLANK ([id number]) on 01/25/2021 9:22:31 AM Referred By: JAVIER Confirmed By:RUKHSANA ZIMMERMAN MD
== END 2021-01-24 08:05 | disposition home or self-care (01) ==
LOC: CLSP 07:47 → PCU 01-24 09:37
PROVIDERS: Visit Provider Internal Medicine Interventional Cardiology
DX: I25.10 Atherosclerotic heart disease of native coronary artery without angina pectoris (principal); I10 Essential (primary) hypertension; E78.5 Hyperlipidemia, unspecified; Z95.5 Presence of coronary angioplasty implant and graft; Z79.82 Long term (current) use of aspirin; Z79.899 Other long term (current) drug therapy
CPT/HCPCS: 36415; 80053; 85027; 92928; 93005; 99152; 99153; J7030; J7040; J7050; Q9967; C1725; C1769; C1874; C1887; C1894; C9600

== ENCOUNTER → 2021-08-26 07:50 | Outpatient (CLI) | payer MEDICARE, BC, SELFPAY ==
[2021-08-26 10:21] LABS: Absolute Lymphocyte Count 1.48 X10^3/uL (0.83-4.51); Absolute Neutrophil Count 4.1 X10^3/uL (2.0-7.7); Basophil# 0.07 X10^3/uL; Eosinophil# 0.38 X10^3/uL; Eosinophils% 5.5 % (0-5); Hematocrit 41.1 % (40-54); Hemoglobin 13.7 g/dL (13.0-16.5); Lymphocyte # 1.48 X10^3/ul (0.83-4.51); Lymphocyte % 21.2 % (19-41); Mean Corp Hgb Conc 33.3 g/dL (32-36); Mean Corpuscular Hgb 34.6 pg (27.0-32.0); Mean Corpuscular Volume 103.8 fL (80-94); Mean Platelet Vol. 9.3 fl (6.2-12.0); Monocyte# 0.72 X10^3/uL; Monocyte% 10.3 % (0-10); NRBC Flagged by Analyzer 0 % (0-5); Neutrophil # 4.09 X10^3/uL (2.7-7.7); Neutrophil % 58.7 % (47-70); Platelet Count 320 K/mm3 (150-450); RBC Distribution Width CV 12.1 % (11.6-14.6); RBC Distribution Width SD 46.5 fl (35.1-43.9); Red Blood Count 3.96 M/mm3 (4.6-6.2)
[2021-08-26 11:03] LABS: ALB/GLOB Ratio 0.9 RATIO (0.9-2.4); AST(SGOT) 26 U/L (15-37); Alanine Aminotransfer ALT/SGPT 37 U/L (16-61); Albumin, Serum 3.3 g/dL (3.2-5.0); Alkaline Phosphatase 111 U/L (45-117); Anion Gap 9 (5-15); BUN 13 mg/dL (7-18); BUN/Creat Ratio 15.4 RATIO (10-20); Calcium,Total 8.7 mg/dL (8.5-10.1); Chloride 104 mmol/L (98-107); Cholesterol 128 mg/dL (200); Creatinine, Serum 0.85 mg/dL (0.70-1.30); EST Glomerular Filtration Rate 96 mL/min (>60); Est Glom Filt Rate - Afr Amer 116 mL/min (>60); Globulin 3.8 g/dL (2.2-4.2); Glucose 123 mg/dL (74-106); High Density Lipoprotein 82 mg/dL; PSA,Total - Annual Screen 1.25 ng/mL (0.00-4.00); Potassium 4.4 mmol/L (3.5-5.1); Protein, Total 7.1 g/dL (6.4-8.2); Sodium Level 140 mmol/L (136-145); Triglycerides 59 mg/dL; Very Low Density Lipoprotein 12 mg/dL (5-40)
== END ==
PROVIDERS: Referring Provider Family Medicine; Visit Provider Family Medicine
DX: Z00.00 Encounter for general adult medical examination without abnormal findings (principal); I10 Essential (primary) hypertension; R97.20 Elevated prostate specific antigen [PSA]
CPT/HCPCS: 36415; 80053; 80061; 84153; 85025; G0103

== ENCOUNTER 2022-02-27 08:03 | Outpatient (CLI) | payer MEDICARE, BC, SELFPAY ==
[2022-02-27 10:23] LABS: AST(SGOT) 27 U/L (15-37); Alanine Aminotransfer ALT/SGPT 43 U/L (16-61); Albumin, Serum 3.4 g/dL (3.2-5.0); Alkaline Phosphatase 100 U/L (45-117); Bilirubin, Direct 0.21 mg/dL (0.00-0.30); Cholesterol 154 mg/dL (200); Globulin 3.3 g/dL (2.2-4.2); High Density Lipoprotein 77 mg/dL; Protein, Total 6.7 g/dL (6.4-8.2); Triglycerides 53 mg/dL; Very Low Density Lipoprotein 11 mg/dL (5-40)
== END 2022-02-27 23:59 | disposition home or self-care (01) ==
PROVIDERS: Referring Provider Family Medicine; Visit Provider Family Medicine
DX: E78.5 Hyperlipidemia, unspecified (principal)
CPT/HCPCS: 36415; 80061; 80076

== ENCOUNTER → 2023-11-10 | Outpatient (CLI) | payer MEDICARE, SELFPAY ==
[2023-11-10 11:24] LABS: Absolute Lymphocyte Count 1.61 X10^3/uL (0.83-4.51); Absolute Neutrophil Count 6.2 X10^3/uL (2.0-7.7); Basophil# 0.06 X10^3/uL; Basophil% 0.7 % (0-1); Eosinophil# 0.23 X10^3/uL; Eosinophils% 2.5 % (0-5); Hematocrit 45.4 % (40-54); Lymphocyte # 1.61 X10^3/ul (0.83-4.51); Lymphocyte % 17.7 % (19-41); Mean Corpuscular Hgb 34.7 pg (27.0-32.0); Mean Corpuscular Volume 105.1 fL (80-94); Mean Platelet Vol. 9.5 fl (6.2-12.0); Monocyte# 0.94 X10^3/uL; Monocyte% 10.3 % (0-10); NRBC Flagged by Analyzer 0 % (0-5); Neutrophil # 6.15 X10^3/uL (2.7-7.7); Neutrophil % 67.4 % (47-70); Platelet Count 237 K/mm3 (150-450); RBC Distribution Width CV 11.9 % (11.6-14.6); RBC Distribution Width SD 45.8 fl (35.1-43.9); Red Blood Count 4.32 M/mm3 (4.6-6.2); White Blood Count 9.1 K/mm3 (4.4-11.0)
[2023-11-10 12:02] LABS: Anion Gap 2 (5-15); BUN 12 mg/dL (7-18); BUN/Creat Ratio 9.8 RATIO (10-20); Calcium,Total 9.6 mg/dL (8.5-10.1); Chloride 105 mmol/L (98-107); Creatinine, Serum 1.23 mg/dL (0.70-1.30); EST Glomerular Filtration Rate 62 mL/min (>60); Est Glom Filt Rate - Afr Amer 75 mL/min (>60); Glucose 147 mg/dL (74-106); Magnesium 2.2 mg/dL (1.6-2.6); Potassium 4.6 mmol/L (3.5-5.1); Sodium Level 137 mmol/L (136-145); T4 Free Direct 1.08 ng/dL (0.76-1.46); Thyroid Stim Hormone (TSH) 1.43 uIU/mL (0.358-3.74)
== END | disposition home or self-care (01) ==
LOC: LAB 11:00
PROVIDERS: Referring Provider Nurse Practitioner Family; Visit Provider Nurse Practitioner Family
DX: R00.0 Tachycardia, unspecified (principal); Z95.5 Presence of coronary angioplasty implant and graft; R07.9 Chest pain, unspecified; E78.5 Hyperlipidemia, unspecified
CPT/HCPCS: 36415; 80048; 83735; 84439; 84443; 85025

== ENCOUNTER → 2023-11-24 | Outpatient (CLI) | payer MEDICARE, SELFPAY ==
--- OUTSIDE RECORDS SUMMARY | 2023-11-24 15:04 | XMS RPT_ITS | CCD ---
Author Name Unknown Address [address] [place] [address] [address] [place] [address] Organization [facility] Care Team Providers Care Stock Feeder Name Role Phone Hugh Monsalve Unavailable Unavailable Hugh Monsalve Unavailable Unavailable Mandeep Paulino Unavailable Unavailable TinoJanusz W Unavailable Unavailable Tino Janusz W Unavailable Unavailable Dew HORTICULTURE TEACHER, Luiz Unavailable Unavailable Pending Provider Unavailable Unavailable Pending Provider Unavailable Unavailable Unavailable Primary Care Provider UnavailHUGH Mckenzie Referring Unavailab LASHAWN Merchant Referring Unavailable Unavailable Primary Care Provider UnavailHUGH Mckenzie Attending Unavailab HUGH Salmon Attending Unavailab HUGH Salmon Attending Unavailab HUGH Salmon Primary Care Unavailab le Medications Completed/Discontinued Medications Medication Drug Class(es) Dates Sig (Normalized) Sig (Original) aspirin 81 mg delayed release oral tablet (7 sources) Platelet Aggregation Inhibitor, Nonsteroidal Anti-inflammatory Drug Start: 11-[birth year]-1969 aspirin, enteric coated (ASPIRIN, ENTERIC COATED) 81 mg EC tablet Aspirin Low Dose 81 mg tablet,delayed release (DR/EC) 0 11/09/1969 Active Problems Active Problems Problem Classification Problem Date Documented Da te Episodic/Chronic Anxiety disorders (3 sources) Mixed anxiety and depressive disorder; Translations: [Other specified anxiety disorders] Onset: 01-19-2023 Chronic Coronary atherosclerosis and other heart disease (7 sources) Coronary atherosclerosis; Translations: [Atherosclerotic heart disease of [place] coronary artery without angina pectoris] Onset: 08-21-2021 08-10-2022 Chronic Diabetes mellitus without complication (2 sources) Hyperglycemia; Translations: [Hyperglycemia, unspecified] Onset: 09-05-2022 Episodic Disorders of lipid metabolism (10 sources) Hyperlipidemia; Translations: [Hyperlipidemia, unspecified] Onset: 02-17-2022 08-10-2022 Chronic Essential hypertension (10 sources) Hypertensive disorder; Translations: [Essential (primary) hypertension] Onset: 08-10-2022 08-10-2022 Chronic Mood disorders (1 source) Depression Onset: 01-19-2023 Chronic Osteoarthritis (2 sources) Osteoarthritis of joint of left shoulder region; Translations: [Osteoarthrosis, localized, primary, shoulder region] Chronic Other aftercare (2 sources) Surgical follow-up; Translations: [Other specified aftercare following surgery] Episodic Other connective tissue disease (1 source) Rotator cuff syndrome; Translations: [Rotator cuff (capsule) sprain] Episodic Other connective tissue disease (1 source) Unspecified rotator cuff tear or rupture of left shoulder, not specified as traumatic; Translations: [Tear of left rotator cuff, unspecified tear extent, unspecified whether traumatic] Episodic Other non-traumatic joint disorders (2 sources) Shoulder joint pain; Translations: [Pain in joint, shoulder region] Episodic Unclassified (1 source) Unknown / UNK(Unknown) Onset: 01-25-2018 Past or Other Problems Problem Classification Problem Date Documented Da te Episodic/Chronic Mycoses (7 sources) Onychomycosis; Translations: [Tinea unguium] Onset: 02-17-2019 08-10-2022 Episodic Other nervous system disorders (7 sources) Paresthesia of upper limb; Translations: [Paresthesia of skin] Onset: 02-17-2022 08-10-2022 Episodic Other screening for suspected conditions (not mental disorders or infectious disease) (20 sources) Raised prostate specific antigen; Translations: [Elevated prostate specific antigen [PSA]] Onset: 12-04-2017 08-10-2022 Episodic Spondylosis; intervertebral disc disorders; other back problems (14 sources) Low back pain; Translations: [Low back pain] Onset: 07-14-2018 08-10-2022 Episodic Unclassified (1 source) R05 Onset: 01-25-2018 NEGATED: Highlighted row has not occurred!Residual codes; unclassified (10 sources) Disease Episodic Results Test Name Value Interpretation Reference Range Facil ity Vital Signs Date Time Vital Sign Value Performing Clinician Faci lity 01-19-2023 13:40-0400 Body height 172.7 cm Hugh Monsalve MD Work Phone: [facility] 01-19-2023 13:40-0400 Body temperature 97.3 [degF] Hugh Monsalve MD Work Phone: [facility] 01-19-2023 13:40-0400 Body weight 75.75 kg Hugh Monsalve MD Work Phone: [facility] 01-19-2023 13:40-0400 Diastolic blood pressure 82 mm[Hg] Hugh Monsalve MD Work Phone: [facility] 01-19-2023 13:40-0400 Heart rate 88 /min Hugh Monsalve MD Work Phone: [facility] 01-19-2023 13:40-0400 Respiratory rate 18 /min Hugh Monsalve MD Work Phone: [facility] 01-19-2023 13:40-0400 SaO2% (BldA) [Mass fraction] 98 % Hugh Monsalve MD Work Phone: [facility] 01-19-2023 13:40-0400 Systolic blood pressure 136 mm[Hg] Huhg Monsalve MD Work Phone: [facility] 08-25-2022 12:59-0400 Body height 172.7 cm Hugh Monsalve MD Work Phone: [facility] 08-25-2022 12:59-0400 Body temperature 97.7 [degF] Hugh Monsalve MD Work Phone: [facility] 08-25-2022 12:59-0400 Body weight 30.57 kg Hugh Monsalve MD Work Phone: [facility] 08-25-2022 12:59-0400 Diastolic blood pressure 78 mm[Hg] Hugh Monsalve MD Work Phone: [facility] 08-25-2022 12:59-0400 Heart rate 98 /min Hugh Monsalve MD Work Phone: [facility] 08-25-2022 12:59-0400 Respiratory rate 14 /min Hugh Monsalve MD Work Phone: [facility] 08-25-2022 12:59-0400 SaO2% (BldA) [Mass fraction] 98 % Hugh Monsalve MD Work Phone: [facility] 08-25-2022 12:59-0400 Systolic blood pressure 130 mm[Hg] Hugh Monsalve MD Work Phone: [facility] Encounters Encounter Date Encounter Type Care Provider Facility Start: 2023 End: 2023 ambulatory HUGH BECK MONSALVE Facility:[id number] Start: 02-10-2023 Refill Hugh Randhawa MD Work Phone: [facility] [place] Plan of Treatment Date Care Activity Detail Author Start: 09-03-2027 LIPID SCREEN LIPID SCREEN [facility] Start: 09-03-2027 PROSTATE CANCER SCREENING DISCUSSION PROSTATE CANCER SCREENING DISCUSSION [facility] Start: 09-05-2025 DIABETES SCREEN DIABETES SCREEN [facility] Start: 09-03-2025 DIABETES SCREEN DIABETES SCREEN [facility] Start: 01-20-2024 ANNUAL PCP TEAM [employer]ER MAURILIO DISEASE VISIT ANNUAL PCP TEAM CHRONIC DISEASE VISIT [facility] Start: 09-03-2023 Hepatitis B surface antibody level LDL CHOLESTEROL [facility] Start: 08-25-2023 ANNUAL PCP TEAM [employer] MIXER MAURILIO DISEASE VISIT ANNUAL PCP TEAM CHRONIC DISEASE VISIT [facility] Start: 11-09-2022 ADVANCE DIRECTIVE DISCUSSION ADVANCE DIRECTIVE DISCUSSION [facility] Start: 09-04-2022 End: 11-04-2022 Cobalamin (Vitamin B12) [Mass/volume] in Serum or Plasma VITAMIN B12 BLOOD Lab Routine Screening for deficiency anemia Expected: 09/04/2022, Expires: 11/04/2022 [facility] Work Phone: Immunizations Immunization Date Immunization Notes Care Provider Fa cili 08-15-2022 influenza (aIIV4) vaccine, age 65+ yr, quadrivalent, PF (FLUAD QUADRIVALENT) Hugh Monsalve MD Work Phone: [facility] 12-23-2021 pneumococcal polysaccharide vaccine, 23 valent Hugh Monsalve MD Work Phone: [facility] 07-22-2021 influenza nasal, unspecified formulation Christopher Stetler DO Work Phone: [facility] 07-22-2021 influenza virus vacc ine, unspecified formulation Hugh Monsalve MD Work Phone: [facility] 07-16-2021 influenza (aIIV4) vaccine, age 65+ yr, quadrivalent, PF (FLUAD QUADRIVALENT) Hugh Monsalve MD Work Phone: [facility] 11-14-2020 pneumococcal conjuga te vaccine, 13 valent Hugh Monsalve MD Work Phone: [facility] 11-14-2020 pneumococcal vaccine , unspecified formulation Christopher Stetler DO Work Phone: [facility] 10-26-2020 zoster vaccine recombinant Hugh Monsalve MD Work Phone: [facility] 07-27-2020 influenza, injectabl e, quadrivalent, preservative free Hugh Monsalve MD Work Phone: [facility] 07-27-2020 zoster vaccine recombinant Hugh Monsalve MD Work Phone: [facility] 07-13-2019 influenza nasal, unspecified formulation Christopher Stetler DO Work Phone: [facility] 07-13-2019 Influenza, injectabl e, Madin Cathy Canine Kidney, preservative free, quadrivalent Hugh Monsalve MD Work Phone: [facility] 09-06-2018 influenza, injectabl e, quadrivalent, preservative free Hugh Monsalve MD Work Phone: [facility] 08-07-2017 influenza, injectabl e, quadrivalent, preservative free Hugh Monsalve MD Work Phone: [facility] 07-26-2015 zoster vaccine, live Hugh Monsalve MD Work Phone: [facility] 09-27-1977 diphtheria, tetanus toxoids and acellular pertussis vaccine, unspecified formulation Hugh Monsalve MD Work Phone: [facility] Payers Date Payer Category Payer Medicare A[employer]NA MEDICARE A ETNA MEDICARE PPO [id number] 2022-Present [phone] [address] [place] [address] PPO [id number] 2022 Medicare [id number] 2002 Unknown 2002 Unknown [id number] Medicare [id number] Unknown [id number] Social History Date Type Detail Facility Assertion Tobacco smoking consumption unknown (finding) [facility] Work Phone: Tobacco smoking stat [facility] Tobacco smoking consumption unknown [facility] Start: 1955 Sex Assigned At Not on file C [facility] Start: 08-25-2022 Tobacco smoking stat [facility] Never smoked tobacco [facility] Start: 08-25-2022 Tobacco use and exposure Smokeless tobacco non-user [facility] Start: 08-25-2022 End: 01-19-2023 Alcohol intake Current drinker of alcohol (finding) [facility] Start: 08-25-2022 History SDOH Alcohol Frequency 5 [facility] Start: 08-25-2022 History SDOH Alcohol Std Drinks 2 [facility] Start: 08-25-2022 History SDOH Alcohol Binge 3 [facility] Start: 08-25-2022 History SDOH Social Connections Phone 4 [facility] Start: 08-25-2022 History SDOH Social Connections Anabaptism 1 [facility] Start: 08-25-2022 History SDOH Physica l Activity DPW 0 [facility] Start: 08-25-2022 Education 13 [facility] Start: 08-25-2022 Alcohol Comment occassional [facility] Start: 08-15-2022 End: 08-25-2022 Exposure to SARS-CoV-2 (event) Not sure [facility] NEGATED: Highlighted rowStart: NINF History of tobacco use Passive smoker [facility] Functional Status Date Assessment Result Facility NEGATED: Highlighted row Functional performance Functional status health issues are not documented Disease [facility] Work Phone: Mental Status Date Assessment Result Facility NEGATED: Highlighted row Cognitive function [Interpretation] Cognitive status health issues are not documented Disease [facility] Work Phone: Clinical Notes 08-25-2022 to 2023 Telephone Encounter - Tabatha Blanco, TRISH - 02/10/2023 10:39 AM Amelie Monsalve MD - 01/19/2023 2:12 PM Carol Nagel LPN - 01/19/2023 1:34 PM EDT Note Date & Type Note Facility 2023 Note HNO ID: [id number] Author: Hugh Monsalve MD Service: ? Author Type: Physician Type: Progress Notes Filed: 2023 2:02 PM Note Text: This note was created using Viralitiriter. Subjective Vinnie Tipton is a 68 year old male. Vinnie presents today for follow-up for his depression and anxiety. Symptoms are improved with Lexapro 5 mg daily. He did not tolerate the 10 mg dose. He is still having some loose stools with frequent stooling on the 5 mg dose. Review of Systems Constitutional: Negative. HENT: Negative. Eyes: Negative. Respiratory: Negative. Cardiovascular: Negative. Gastrointestinal: Negative. Endocrine: Negative. Genitourinary: Negative. Musculoskeletal: Negative. Skin: Negative. Allergic/Immunologic: Negative. Neurological: Negative. Hematological: Negative. Psychiatric/Behavioral: Negative. Objective BP 138/82 (BP Site: Left Arm, BP Position: Sitting, BP Cuff Size: Regular Adult) Pulse 64 Temp 36.3 ?C (97.3 ?F) (Temporal) Resp 18 Ht 172.7 cm (5' 8 ) Wt 74.7 kg (164 lb 9.6 oz) SpO2 98% BMI 25.03 kg/m? Physical Exam Vitals reviewed. Constitutional: Appearance: Normal appearance. HENT: Head: Normocephalic and atraumatic. Nose: Nose normal. Eyes: Extraocular Movements: Extraocular movements intact. Pupils: Pupils are equal, round, and reactive to light. Cardiovascular: Rate and Rhythm: Normal rate and regular rhythm. Pulmonary: Effort: Pulmonary effort is normal. Breath sounds: Normal breath sounds. Abdominal: General: Bowel sounds are normal. Palpations: Abdomen is soft. Musculoskeletal: General: Normal range of motion. Cervical back: Normal range of motion and neck supple. Skin: General: Skin is warm and dry. Capillary Refill: Capillary refill takes less than 2 seconds. Neurological: General: No focal deficit present. Mental Status: He is alert and oriented to person, place, and time. Mental status is at baseline. Psychiatric: Mood and Affect: Mood normal. Behavior: Behavior normal. Assessment and Plan Vinnie was seen today for follow up. Diagnoses and all orders for this visit: Major depressive disorder with single episode, in remission ([facility]) [facility] 2023 Note HNO ID: [id number] Author: Elizabeth Nagel LPN Service: ? Author Type: LICENSED NURSE Type: Progress Notes Filed: 2023 2:02 PM Note Text: Patient is in office for follow up for depression. Patient was seen in office on 01-19-2023, with complaint of feeling very overwhelmed, unable to sleep, and having racing thoughts. Patient stated he was also experiencing break downs at times. Patient was advised to start taking Lexapro 10 mg daily, and begin counseling, improve sleep, and increase exercise/activity. Also advised to improve diet. Patient states that he is currently experiencing hot flashes with a whole tablet of Lexapro. Patient has been taking a half of tablet and states that is helping anxiety, without hot flashes. Patient stated that symptoms are better. Patient also continues to deny suicidal thoughts. No refills needed Elizabeth Nagel LPN 2023 1:08 PM [facility] 02-10-2023 Miscellaneous Notes Pharmacy [facility] message requesting the following refill. Requested Prescriptions Pending Prescriptions Disp Refills escitalopram oxalate (LEXAPRO) 10 mg tablet [Pharmacy Med Name: ESCITALOPRAM 10 MG TABLET] 30 tablet 11 Sig: TAKE 1 TABLET BY MOUTH EVERY DAY Patient last appointment: 01/19/2023 Next appointment 2023 Patient Phone numbers: [phone] (home) [phone] (work) Request is for script(s) to be escript to [facility] pharmacy. Tabatha Blanco LPN documented in this encounter [facility] 01-19-2023 Note HNO ID: [id number] Author: Hugh Monsalve MD Service: ? Author Type: Physician Type: Progress Notes Filed: 01/19/2023 2:14 PM Note Text: This note was created using minicabit. Subjective Vinnie Tipton is a 67 year old male.Patient is in office today for depression. Patient stated that he is feeling very overwhelmed. Patient denies suicidal thoughts. Patient stated that he is unable to sleep, and is waking up in the middle of the night with racing thoughts. is present and states that patient breaks down sometimes. Review of Systems Constitutional: Negative. HENT: Negative. Eyes: Negative. Respiratory: Negative. Cardiovascular: Negative. Gastrointestinal: Negative. Endocrine: Negative. Genitourinary: Negative. Musculoskeletal: Negative. Skin: Negative. Allergic/Immunologic: Negative. Neurological: Negative. Hematological: Negative. Psychiatric/Behavioral: Positive for dysphoric mood. Objective BP 136/82 (BP Site: Left Arm, BP Position: Sitting, BP Cuff Size: Regular Adult) Pulse 88 Temp 36.3 ?C (97.3 ?F) (Temporal) Resp 18 Ht 172.7 cm (5' 8 ) Wt 75.8 kg (167 lb) SpO2 98% BMI 25.39 kg/m? Physical Exam Vitals reviewed. Constitutional: Appearance: Normal appearance. HENT: Head: Normocephalic and atraumatic. Nose: Nose normal. Eyes: Extraocular Movements: Extraocular movements intact. Pupils: Pupils are equal, round, and reactive to light. Cardiovascular: Rate and Rhythm: Normal rate and regular rhythm. Pulmonary: Effort: Pulmonary effort is normal. Breath sounds: Normal breath sounds. Abdominal: General: Bowel sounds are normal. Palpations: Abdomen is soft. Musculoskeletal: General: Normal range of motion. Cervical back: Normal range of motion and neck supple. Skin: General: Skin is warm and dry. Capillary Refill: Capillary refill takes less than 2 seconds. Neurological: General: No focal deficit present. Mental Status: He is alert and oriented to person, place, and time. Mental status is at baseline. Psychiatric: Mood and Affect: Mood is anxious and depressed. Behavior: Behavior normal. Assessment and Plan Vinnie was seen today for depression. Diagnoses and all orders for this visit: Anxiety with depression Other orders - escitalopram oxalate (LEXAPRO) 10 mg tablet; Take 1 tablet by mouth once daily. Begin Lexapro. Begin counseling. Improve sleep, increase in exercise and activity level, improve diet. [facility] 01-19-2023 Note HNO ID: [id number] Author: Elizabeth Nagel LPN Service: ? Author Type: LICENSED NURSE Type: Progress Notes Filed: 01/19/2023 2:14 PM Note Text: Patient is in office today for depression. Patient stated that he is feeling very overwhelmed. Patient denies suicidal thoughts. Patient stated that he is unable to sleep, and is waking up in the middle of the night with racing thoughts. is present and states that patient breaks down sometimes. No refills needed Elizabeth Nagel LPN January 19, 2023 1:40 PM [facility] 01-19-2023 History of Presen t illness Narrative This note was created using minicabit. Subjective Vinnie Tipton is a 67 year old male.Patient is in office today for depression. Patient stated that he is feeling very overwhelmed. Patient denies suicidal thoughts. Patient stated that he is unable to sleep, and is waking up in the middle of the night with racing thoughts. is present and states that patient breaks down sometimes. Review of Systems Constitutional: Negative. HENT: Negative. Eyes: Negative. Respiratory: Negative. Cardiovascular: Negative. Gastrointestinal: Negative. Endocrine: Negative. Genitourinary: Negative. Musculoskeletal: Negative. Skin: Negative. Allergic/Immunologic: Negative. Neurological: Negative. Hematological: Negative. Psychiatric/Behavioral: Positive for dysphoric mood. Objective BP 136/82 (BP Site: Left Arm, BP Position: Sitting, BP Cuff Size: Regular Adult) Pulse 88 Temp 36.3 C (97.3 F) (Temporal) Resp 18 Ht 172.7 cm (5' 8 ) Wt 75.8 kg (167 lb) SpO2 98% BMI 25.39 kg/m Physical Exam Vitals reviewed. Constitutional: Appearance: Normal appearance. HENT: Head: Normocephalic and atraumatic. Nose: Nose normal. Eyes: Extraocular Movements: Extraocular movements intact. Pupils: Pupils are equal, round, and reactive to light. Cardiovascular: Rate and Rhythm: Normal rate and regular rhythm. Pulmonary: Effort: Pulmonary effort is normal. Breath sounds: Normal breath sounds. Abdominal: General: Bowel sounds are normal. Palpations: Abdomen is soft. Musculoskeletal: General: Normal range of motion. Cervical back: Normal range of motion and neck supple. Skin: General: Skin is warm and dry. Capillary Refill: Capillary refill takes less than 2 seconds. Neurological: General: No focal deficit present. Mental Status: He is alert and oriented to person, place, and time. Mental status is at baseline. Psychiatric: Mood and Affect: Mood is anxious and depressed. Behavior: Behavior normal. Assessment and Plan Vinnie was seen today for depression. Diagnoses and all orders for this visit: Anxiety with depression Other orders - escitalopram oxalate (LEXAPRO) 10 mg tablet; Take 1 tablet by mouth once daily. Begin Lexapro. Begin counseling. Improve sleep, increase in exercise and activity level, improve diet. Patient is in office today for depression. Patient stated that he is feeling very overwhelmed. Patient denies suicidal thoughts. Patient stated that he is unable to sleep, and is waking up in the middle of the night with racing thoughts. is present and states that patient breaks down sometimes. No refills needed Elizabeth Nagel LPN January 19, 2023 1:40 PM documented in this encounter [facility] 09-04-2022 Miscellaneous Notes Patient notified of information verbalized understanding Elizabeth Nagel LPN September 04, 2022 8:34 AM ----- Message from Lashawn Perez APRN.[employer] sent at 09/04/2022 7:44 AM EDT ----- PSA, kidney function, liver function, cholesterol okay. Blood sugar elevated. Mildly anemic with slightly increased size of blood cells. I want him to get another blood draw for an A1C as well as vitamin B12 and folate levels to make sure he is not deficient. documented in this encounter [facility] 08-25-2022 Note HNO ID: [id number] Author: Hugh Monsalve MD Service: ? Author Type: Physician Type: Progress Notes Filed: 08/25/2022 4:30 PM Note Text: This note was created using Viralitiriter. Subjective Vinnie Tipton is a 67 year old male. Vinnie is here for his Medicare wellness exam. His chronic medical problems are stable. Objective BP 130/78 (BP Site: Left Arm, BP Cuff Size: Large Adult) Pulse 98 Temp 36.5 ?C (97.7 ?F) (Temporal) Resp 14 Ht 172.7 cm (5' 8 ) Wt 30.6 kg (67 lb 6.4 oz) SpO2 98% BMI 10.25 kg/m? Physical Exam Vitals reviewed. Constitutional: Appearance: Normal appearance. HENT: Head: Normocephalic and atraumatic. Nose: Nose normal. Eyes: Extraocular Movements: Extraocular movements intact. Pupils: Pupils are equal, round, and reactive to light. Cardiovascular: Rate and Rhythm: Normal rate and regular rhythm. Pulmonary: Effort: Pulmonary effort is normal. Breath sounds: Normal breath sounds. Abdominal: General: Bowel sounds are normal. Palpations: Abdomen is soft. Musculoskeletal: General: Normal range of motion. Cervical back: Normal range of motion and neck supple. Skin: General: Skin is warm and dry. Capillary Refill: Capillary refill takes less than 2 seconds. Neurological: General: No focal deficit present. Mental Status: He is alert and oriented to person, place, and time. Mental status is at baseline. Psychiatric: Mood and Affect: Mood normal. Behavior: Behavior normal. Assessment and Plan Vinnie was seen today for medicare wellness exam. Diagnoses and all orders for this visit: Wellness examination Pure hypercholesterolemia - COMP METABOLIC PANEL; Future - LIPID PANEL BASIC; Future Primary hypertension - COMP METABOLIC PANEL; Future Encounter for screening for malignant neoplasm of prostate - PSA/PROSTSPECAG SCRN; Future Screening for deficiency anemia - CBC + DIFF; Future [facility] 08-25-2022 History of Presen t illness Narrative This note was created using Viralitiriter. Subjective Vinnie Tipton is a 67 year old male. Vinnie is here for his Medicare wellness exam. His chronic medical problems are stable. Objective BP 130/78 (BP Site: Left Arm, BP Cuff Size: Large Adult) Pulse 98 Temp 36.5 C (97.7 F) (Temporal) Resp 14 Ht 172.7 cm (5' 8 ) Wt 30.6 kg (67 lb 6.4 oz) SpO2 98% BMI 10.25 kg/m Physical Exam Vitals reviewed. Constitutional: Appearance: Normal appearance. HENT: Head: Normocephalic and atraumatic. Nose: Nose normal. Eyes: Extraocular Movements: Extraocular movements intact. Pupils: Pupils are equal, round, and reactive to light. Cardiovascular: Rate and Rhythm: Normal rate and regular rhythm. Pulmonary: Effort: Pulmonary effort is normal. Breath sounds: Normal breath sounds. Abdominal: General: Bowel sounds are normal. Palpations: Abdomen is soft. Musculoskeletal: General: Normal range of motion. Cervical back: Normal range of motion and neck supple. Skin: General: Skin is warm and dry. Capillary Refill: Capillary refill takes less than 2 seconds. Neurological: General: No focal deficit present. Mental Status: He is alert and oriented to person, place, and time. Mental status is at baseline. Psychiatric: Mood and Affect: Mood normal. Behavior: Behavior normal. Assessment and Plan Vinnie was seen today for medicare wellness exam. Diagnoses and all orders for this visit: Wellness examination Pure hypercholesterolemia - COMP METABOLIC PANEL; Future - LIPID PANEL BASIC; Future Primary hypertension - COMP METABOLIC PANEL; Future Encounter for screening for malignant neoplasm of prostate - PSA/PROSTSPECAG SCRN; Future Screening for deficiency anemia - CBC + DIFF; Future Medicare Yearly Visit Medical B eligibilty date Date of last exam History reviewed. No pertinent past medical history. History reviewed. No pertinent surgical history. ALLERGIES: Patient has no known allergies. Medications reviewed: Yes History reviewed. No pertinent family history. SOCIAL HISTORY: Social History Tobacco Use Smoking status: Never Passive exposure: Never Smokeless tobacco: Never Vaping Use Vaping Use: Never used Substance Use Topics Alcohol use: Yes Comment: occassional Drug use: Never Vinnie gets minimal exercise. He watches his diet for sodium, low fat and low cholesterol generally not very much. List of current specialists seen: cardiology End of Live Planning discussed including patients advanced directive wishes: Yes I am willing to follow Vinnie's advanced directives. PHQ-2 / Depression screen He in the past two weeks denies having felt down, depressed, hopeless, or with little interest or pleasure in doing things. PHQ-2 Score: 0 Functional Ability/Safety Screen 1. Was the patient's timed Up and Go test unsteady or longer than 30 seconds? Yes 2. Does the patient need help with the phone, transportation, shopping,preparing meals, housework, laundry, medications or managing money? No 3. Does your home have rugs in the hallway, lack of grab bars in the bathroom, lack of handrails on the stairs or have poor lighting? Yes Hearing Evaluation: normal PHYSICAL EXAM Temp 36.5 C (97.7 F) (Temporal) Resp 14 Ht 172.7 cm (5' 8 ) Wt 30.6 kg (67 lb 6.4 oz) BMI 10.25 kg/m Alert and oriented X 3: YES Body mass index is 10.25 kg/m . Visual acuity: ASSESSMENT/PLAN: 67 year old male The following prevention plan was discussed during the office visit and provided to the patient: - Lipid panel - Glaucoma screening Jaye To LPN documented in this encounter [facility] 08-25-2022 Note HNO ID: [id number] Author: Jaye To LPN Service: ? Author Type: LICENSED NURSE Type: Progress Notes Filed: 08/25/2022 4:30 PM Note Text: Medicare Yearly Visit Medical B eligibilty date Date of last exam History reviewed. No pertinent past medical history. History reviewed. No pertinent surgical history. ALLERGIES: Patient has no known allergies. Medications reviewed: Yes History reviewed. No pertinent family history. SOCIAL HISTORY: Social History Tobacco Use Smoking status: Never Passive exposure: Never Smokeless tobacco: Never Vaping Use Vaping Use: Never used Substance Use Topics Alcohol use: Yes Comment: occassional Drug use: Never Vinnie gets minimal exercise. He watches his diet for sodium, low fat and low cholesterol generally not very much. List of current specialists seen: cardiology End of Live Planning discussed including patients advanced directive wishes: Yes I am willing to follow Vinnie's advanced directives. PHQ-2 / Depression screen He in the past two weeks denies having felt down, depressed, hopeless, or with little interest or pleasure in doing things. PHQ-2 Score: 0 Functional Ability/Safety Screen 1. Was the patient's timed Up and Go test unsteady or longer than 30 seconds? Yes 2. Does the patient need help with the phone, transportation, shopping,preparing meals, housework, laundry, medications or managing money? No 3. Does your home have rugs in the hallway, lack of grab bars in the bathroom, lack of handrails on the stairs or have poor lighting? Yes Hearing Evaluation: normal PHYSICAL EXAM Temp 36.5 ?C (97.7 ?F) (Temporal) Resp 14 Ht 172.7 cm (5' 8 ) Wt 30.6 kg (67 lb 6.4 oz) BMI 10.25 kg/m? Alert and oriented X 3: YES Body mass index is 10.25 kg/m?. Visual acuity: ASSESSMENT/PLAN: 67 year old male The following prevention plan was discussed during the office visit and provided to the patient: - Lipid panel - Glaucoma screening Jaye To PROFESSIONAL SERVICES MANAGER [facility] Diagnosis Screening for deficiency anemia- Primary Screening for other and unspecified deficiency anemia Hyperglycemia Other abnormal glucose [facility]* Diagnosis Anxiety with depression- Primary [facility]* Name Dates Details Instructions not documented [facility] Work Phone: Summary Purpose Family History No Family History Records FoundNo Family History Records FoundNo Family History Records FoundNo Family History Records FoundNo Family History Records FoundNo Family History Records Found Advance Directives No Advanced Directives Records FoundNo Advanced Directives Records FoundNo Advanced Directives Records FoundNo Advanced Directives Records FoundNo Advanced Directives Records FoundNo Advanced Directives Records Found Additional Source Comments (unrecognized sect ion and content) No Status Records FoundNo Status Records FoundNo Status Records FoundNo Status Records FoundNo Status Records FoundNo Status Records Found INFORMATION SOURCE (unrecogn ized section and content) DATE CREATED AUTHOR AUTHOR'S ORGANIZ ATION 07/30/2018 [facility] DATE CREATED AUTHOR AUTHOR'S ORGANIZ ATION 08/08/2018 [facility] DATE CREATED AUTHOR AUTHOR'S ORGANIZ ATION 04/16/2021 [employer] DATE CREATED AUTHOR AUTHOR'S ORGANIZ ATION 09/06/2022 [facility] DATE CREATED AUTHOR AUTHOR'S ORGANIZ ATION 02/24/2023 [facility] Source Comments (unrecognize d section and content) In the event this informatio n is protected by the Federal Confidentiality of Alcohol and Drug Abuse Patient Records regulations: The Federal rules restrict any use of the information to criminally investigate or prosecute any alcohol or drug abuse patient.[facility] the event this information is protected by the Federal Confidentiality of Alcohol and Drug Abuse Patient Records regulations: The Federal rules restrict any use of the information to criminally investigate or prosecute any alcohol or drug abuse patient.[facility] the event this information is protected by the Federal Confidentiality of Alcohol and Drug Abuse Patient Records regulations: The Federal rules restrict any use of the information to criminally investigate or prosecute any alcohol or drug abuse patient.[facility] the event this information is protected by the Federal Confidentiality of Alcohol and Drug Abuse Patient Records regulations: The Federal rules restrict any use of the information to criminally investigate or prosecute any alcohol or drug abuse patient.[facility] the event this information is protected by the Federal Confidentiality of Alcohol and Drug Abuse Patient Records regulations: The Federal rules restrict any use of the information to criminally investigate or prosecute any alcohol or drug abuse patient.[facility] the event this information is protected by the Federal Confidentiality of Alcohol and Drug Abuse Patient Records regulations: The Federal rules restrict any use of the information to criminally investigate or prosecute any alcohol or drug abuse patient.[facility] the event this information is protected by the Federal Confidentiality of Alcohol and Drug Abuse Patient Records regulations: The Federal rules restrict any use of the information to criminally investigate or prosecute any alcohol or drug abuse patient.[facility] Reason for Visit (unrecogniz ed section and content) Specialty Diagnoses / Procedures Referred By Hemant t Referred To Contact Family Medicine / FAMILY MEDICINE Diagnoses Medicare annual wellness visit, initial medicare wellness---crm Procedures OFFICE/OUTPATIENT NEW MODERATE MDM 45-59 MINUTES EST WELL VISIT Self Hugh Monsalve MD [address] [place] [address] Referral ID Status Reason Start Date Expiration Date Visits Requested Visits Authorized [id number] Closed Financial Clearance Required - OON Payor OON Notification Letter Patient Cleared - Admin/Reprographics Associate/D irector advise to proceed 2 11/23/2022 1 1 Reason Comments Results Reason Comments Depression Reason Comments Refill Request FOR RECORDS PERTAINING TO PATIENTS WHO ARE OR HAVE BEEN ENROLLED IN A CHEMICAL DEPENDENCY/SUBSTANCEABUSE PROGRAM, SOME INFORMATION MAY BE OMITTED. This clinical summary was aggregated from multiple sources. Caution should be exercised in using it in the provision of clinical care. This summary normalizes information from multiple sources, and as a consequence, information in this document may materially change the coding, format and clinical context of patient data. In addition, data may be omitted in some cases. CLINICAL DECISIONS SHOULD BE BASED ON THE PRIMARY CLINICAL RECORDS. [employer] provides no warranty or guarantee of the accuracy or completeness of information in this document.
== END | disposition home or self-care (01) ==
LOC: PSN 13:34
PROVIDERS: PCP Family Medicine; Referring Provider Nurse Practitioner Family; Visit Provider Nurse Practitioner Family
DX: R00.0 Tachycardia, unspecified (principal); Z95.5 Presence of coronary angioplasty implant and graft; R07.9 Chest pain, unspecified
CPT/HCPCS: 93225; 93226

== ENCOUNTER → 2023-11-26 | Outpatient (CLI) | payer MEDICARE, SELFPAY ==
--- OUTSIDE RECORDS SUMMARY | 2023-11-26 06:23 | XMS RPT_ITS | CCD ---
Author Name Unknown Address [address] [place] [address] [address] [place] [address] Organization [facility] Care Team Providers Care Dresser Tender Name Role Phone Hugh Monsalve Unavailable Unavailable Hugh Monsalve Unavailable Unavailable Mandeep Paulino Unavailable Unavailable TinoJanusz W Unavailable Unavailable Tino Janusz W Unavailable Unavailable Dew STORE ADMINISTRATIVE ASSISTANT, Luiz Unavailable Unavailable Pending Provider Unavailable Unavailable [...] Coronary atherosclerosis; Translations: [Atherosclerotic heart disease of [place] coronary artery without angina pectoris] Onset: 08-21-2021 [...] 172.7 cm Hugh Monsalve MD Work Phone: [facility] 01-19-2023 13:40-0400 Body temperature 97.3 [degF] Hugh Monsalve MD Work Phone: [facility] 01-19-2023 13:40-0400 Body weight 75.75 kg Hugh Monsalve MD Work Phone: [facility] 01-19-2023 13:40-0400 Diastolic blood pressure 82 mm[Hg] Hugh Monsalve MD Work Phone: [facility] 01-19-2023 13:40-0400 Heart rate 88 /min Hugh Monsalve MD Work Phone: [facility] 01-19-2023 13:40-0400 Respiratory rate 18 /min Hugh Monsalve MD Work Phone: [facility] 01-19-2023 13:40-0400 SaO2% (BldA) [Mass fraction] 98 % Hugh Monsalve MD Work Phone: [facility] 01-19-2023 13:40-0400 Systolic blood pressure 136 mm[Hg] Hugh Monsalve MD Work Phone: [facility] 08-25-2022 12:59-0400 Body height 172.7 cm Hugh Monsalve MD Work Phone: [facility] 08-25-2022 12:59-0400 Body temperature 97.7 [degF] Hugh Monsalve MD Work Phone: [facility] 08-25-2022 12:59-0400 Body weight 30.57 kg Hugh Monsalve MD Work Phone: [facility] 08-25-2022 12:59-0400 Diastolic blood pressure 78 mm[Hg] Hugh Monsalve MD Work Phone: [facility] 08-25-2022 12:59-0400 Heart rate 98 /min Hugh Monsalve MD Work Phone: [facility] 08-25-2022 12:59-0400 Respiratory rate 14 /min Hugh Monsalve MD Work Phone: [facility] 08-25-2022 12:59-0400 SaO2% (BldA) [Mass fraction] 98 % Hugh Monsalve MD Work Phone: [facility] 08-25-2022 12:59-0400 Systolic blood pressure 130 mm[Hg] Hugh Monsalve MD Work Phone: [facility] Encounters Encounter Date Encounter Type Care Provider Facility Start: 2023 End: 2023 ambulatory HUGH BECK MONSALVE Facility:[id number] Start: 02-10-2023 Refill Hugh Randhawa MD Work Phone: [facility] Plan of Treatment Date Care Activity Detail Author Start: 09-03-2027 LIPID SCREEN LIPID SCREEN [facility] Start: 09-03-2027 PROSTATE CANCER SCREENING DISCUSSION PROSTATE CANCER SCREENING DISCUSSION [facility] Start: 09-05-2025 DIABETES SCREEN DIABETES SCREEN [facility] Start: 09-03-2025 DIABETES SCREEN DIABETES SCREEN [facility] Start: 01-20-2024 ANNUAL PCP TEAM PINMAKER MAURILIO DISEASE VISIT ANNUAL PCP TEAM CHRONIC DISEASE VISIT [facility] Start: 09-03-2023 Hepatitis B surface antibody level LDL CHOLESTEROL [facility] Start: 08-25-2023 ANNUAL PCP TEAM PINMAKER MAURILIO DISEASE VISIT ANNUAL PCP TEAM CHRONIC DISEASE VISIT [facility] Start: 11-09-2022 ADVANCE DIRECTIVE DISCUSSION ADVANCE DIRECTIVE DISCUSSION [facility] Start: 09-04-2022 End: 11-04-2022 Cobalamin (Vitamin B12) [Mass/volume] in Serum or Plasma VITAMIN B12 BLOOD Lab Routine Screening for deficiency anemia Expected: 09/04/2022, Expires: 11/04/2022 [facility] Work Phone: Immunizations Immunization Date Immunization Notes Care Provider Fa cili 08-15-2022 influenza (aIIV4) vaccine, age 65+ yr, quadrivalent, PF (FLUAD QUADRIVALENT) Hugh Monsalve MD Work Phone: [facility] 12-23-2021 pneumococcal polysaccharide vaccine, 23 valent Hugh Monsalve MD Work Phone: [facility] 07-22-2021 influenza nasal, unspecified formulation Christopher Stetler DO Work Phone: [facility] 07-22-2021 influenza virus vacc ine, unspecified formulation Hugh Monsalve MD Work Phone: [facility] 07-16-2021 influenza (aIIV4) vaccine, age 65+ yr, quadrivalent, PF (FLUAD QUADRIVALENT) Hugh Monsalve MD Work Phone: [facility] 11-14-2020 pneumococcal conjuga te vaccine, 13 valent Hugh Monsalve MD Work Phone: [facility] 11-14-2020 pneumococcal vaccine , unspecified formulation Christopher Stetler DO Work Phone: [facility] 10-26-2020 zoster vaccine recombinant Hugh Monsalve MD Work Phone: [facility] 07-27-2020 influenza, injectabl e, quadrivalent, preservative free Hugh Monsalve MD Work Phone: [facility] 07-27-2020 zoster vaccine recombinant Hugh Monsalve MD Work Phone: [facility] 07-13-2019 influenza nasal, unspecified formulation Christopher Stetler DO Work Phone: [facility] 07-13-2019 Influenza, injectabl e, Madin Cathy Canine Kidney, preservative free, quadrivalent Hugh Monsalve MD Work Phone: [facility] 09-06-2018 influenza, injectabl e, quadrivalent, preservative free Hugh Monsalve MD Work Phone: [facility] 08-07-2017 influenza, injectabl e, quadrivalent, preservative free Hugh Monsalve MD Work Phone: [facility] 07-26-2015 zoster vaccine, live Hugh Monsalve MD Work Phone: [facility] 09-27-1977 diphtheria, tetanus toxoids and acellular pertussis vaccine, unspecified formulation Hugh Monsalve MD Work Phone: [facility] Payers Date Payer Category Payer Medicare A[employer] MEDICARE A ETNA MEDICARE PPO [id number] 2022-Present [phone] [address] [place] [address] PPO [id number] 2022 Medicare [id number] 2002 Unknown 2002 Unknown [id number] Medicare [id number] Unknown [id number] Social History Date Type Detail Facility Assertion Tobacco smoking consumption unknown (finding) [facility] Work Phone: Tobacco smoking stat [facility] Tobacco smoking consumption unknown [facility] Start: 1955 Sex Assigned At Not on file [facility] Start: 08-25-2022 Tobacco smoking stat [facility] Never smoked tobacco [facility] Start: 08-25-2022 Tobacco use and exposure Smokeless tobacco non-user [facility] Start: 08-25-2022 End: 01-19-2023 Alcohol intake Current drinker of alcohol (finding) [facility] Start: 08-25-2022 History SDOH Alcohol Frequency 5 [facility] Start: 08-25-2022 History SDOH Alcohol Std Drinks 2 [facility] Start: 08-25-2022 History SDOH Alcohol Binge 3 [facility] Start: 08-25-2022 History SDOH Social Connections Phone 4 [facility] Start: 08-25-2022 History SDOH Social Connections Quaker 1 [facility] Start: 08-25-2022 History SDOH Physica l Activity DPW 0 [facility] Start: 08-25-2022 Education 13 [facility] Start: 08-25-2022 Alcohol Comment occassional [facility] Start: 08-15-2022 End: 08-25-2022 Exposure to SARS-CoV-2 (event) Not sure [facility] NEGATED: Highlighted rowStart: NINF History of tobacco use Passive smoker [facility] Functional Status Date Assessment Result Facility NEGATED: Highlighted row Functional performance Functional status health issues are not documented Disease [facility] Work Phone: Mental Status Date Assessment [...] Type Note Facility 2023 Note HNO ID: [id number] Author: Hugh Monsalve MD Service: ? Author Type: Physician Type: Progress Notes Filed: 2023 2:02 PM Note Text: This note was created using eMaginriter. Subjective Vinnie Tipton is a 68 year [...] depressive disorder with single episode, in remission ([facility]) [facility] 2023 Note HNO ID: [id number] Author: Elizabeth Nagel LPN Service: ? Author [...] needed Elizabeth Nagel LPN 2023 1:[address] [facility] 02-10-2023 Miscellaneous Notes Pharmacy PoweredAnalyticst message requesting the following refill. Requested Prescriptions Pending Prescriptions Disp Refills escitalopram oxalate (LEXAPRO) 10 mg tablet [Pharmacy Med Name: ESCITALOPRAM 10 MG TABLET] 30 tablet 11 Sig: TAKE 1 TABLET BY MOUTH EVERY DAY Patient last appointment: 01/19/2023 Next appointment 2023 Patient Phone numbers: [phone] (home) [phone] (work) Request is for script(s) to be escript to [facility] pharmacy. Tabatha Blanco LPN documented in this encounter [facility] 01-19-2023 Note HNO ID: [id number] Author: Hugh Monsalve MD Service: ? Author Type: Physician Type: Progress Notes Filed: 01/19/2023 2:14 PM Note Text: This note was created using Allvoices. Subjective Vinnie Tipton is a 67 year [...] in exercise and activity level, improve diet. [facility] 01-19-2023 Note HNO ID: [id number] Author: Elizabeth Nagel LPN Service: ? Author [...] Nagel LPN January 19, 2023 1:[address] [facility] 01-19-2023 History of Presen t illness Narrative This note was created using Allvoices. Subjective Vinnie Tipton is a 67 year [...] 2023 1:40 PM documented in this encounter [facility] 09-04-2022 Miscellaneous Notes Patient notified of information verbalized understanding Elizabeth Nagel LPN September 04, 2022 8:34 AM ----- Message from Lashawn Perez APRN.[employer]UTOR sent at 09/04/2022 7:44 AM EDT ----- PSA, kidney function, liver function, cholesterol okay. Blood sugar elevated. Mildly anemic with slightly increased size of blood cells. I want him to get another blood draw for an A1C as well as vitamin B12 and folate levels to make sure he is not deficient. documented in this encounter [facility] 08-25-2022 Note HNO ID: [id number] Author: Hugh Monsalve MD Service: ? Author Type: Physician Type: Progress Notes Filed: 08/25/2022 4:30 PM Note Text: This note was created using eMaginriter. Subjective Vinnie Tipton is a 67 year [...] deficiency anemia - CBC + DIFF; Future [facility] 08-25-2022 History of Presen t illness Narrative This note was created using eMaginriter. Subjective Vinnie Tipton is a 67 year [...] Jaye To LPN documented in this encounter [facility] 08-25-2022 Note HNO ID: [id number] Author: Jaye To LPN Service: ? Author [...] Lipid panel - Glaucoma screening Jaye To COMMUNITY CASE MANAGER [facility] Diagnosis Screening for deficiency anemia- Primary Screening for other and unspecified deficiency anemia Hyperglycemia Other abnormal glucose [facility] Diagnosis Anxiety with depression- Primary [facility] Name Dates Details Instructions not documented [facility] Work Phone: Summary Purpose Family History [...] DATE CREATED AUTHOR AUTHOR'S ORGANIZ ATION 07/30/2018 [facility] DATE CREATED AUTHOR AUTHOR'S ORGANIZ ATION 08/08/2018 [facility] DATE CREATED AUTHOR AUTHOR'S ORGANIZ ATION 04/16/2021 [employer] DATE CREATED AUTHOR AUTHOR'S ORGANIZ ATION 09/06/2022 [facility] DATE CREATED AUTHOR AUTHOR'S ORGANIZ ATION 02/24/2023 [facility] nter Source Comments (unrecognize d section and content) In the event this informatio n is protected by the Federal Confidentiality of Alcohol and Drug Abuse Patient Records regulations: The Federal rules restrict any use of the information to criminally investigate or prosecute any alcohol or drug abuse patient.[facility] the event this information is protected by the Federal Confidentiality of Alcohol and Drug Abuse Patient Records regulations: The Federal rules restrict any use of the information to criminally investigate or prosecute any alcohol or drug abuse patient.[facility] the event this information is protected by the Federal Confidentiality of Alcohol and Drug Abuse Patient Records regulations: The Federal rules restrict any use of the information to criminally investigate or prosecute any alcohol or drug abuse patient.[facility] the event this information is protected by the Federal Confidentiality of Alcohol and Drug Abuse Patient Records regulations: The Federal rules restrict any use of the information to criminally investigate or prosecute any alcohol or drug abuse patient.[facility] the event this information is protected by the Federal Confidentiality of Alcohol and Drug Abuse Patient Records regulations: The Federal rules restrict any use of the information to criminally investigate or prosecute any alcohol or drug abuse patient.[facility] the event this information is protected by the Federal Confidentiality of Alcohol and Drug Abuse Patient Records regulations: The Federal rules restrict any use of the information to criminally investigate or prosecute any alcohol or drug abuse patient.[facility] the event this information is protected by the Federal Confidentiality of Alcohol and Drug Abuse Patient Records regulations: The Federal rules restrict any use of the information to criminally investigate or prosecute any alcohol or drug abuse patient.[facility] Reason for Visit (unrecogniz ed section and content) Specialty Diagnoses / Procedures Referred By Hemant t Referred To Contact Family Medicine / FAMILY MEDICINE Diagnoses Medicare annual wellness visit, initial medicare wellness---crm Procedures OFFICE/OUTPATIENT NEW MODERATE MDM 45-59 MINUTES EST WELL VISIT Self Hugh Monsalve MD [address] [place] [address] Referral ID Status Reason Start Date Expiration Date Visits Requested Visits Authorized [id number] Closed Financial Clearance Required - OON Payor OON Notification Letter Patient Cleared - Admin/Filemaker Developer/D irector advise to proceed 2 11/23/2022 1 [...] BE BASED ON THE PRIMARY CLINICAL RECORDS. [employer] provides no warranty or guarantee of the accuracy or completeness of information in this document.
--- NOTE | 2023-11-26 16:01 | STRESSREP_ITS ---
Stress Test Report Exercise myocardial perfusion stress test. 68-year-old man with a history of chest pain Stress protocol: Resting EKG demonstrates normal sinus rhythm with a rate of 87 bpm resting blood pressure is 128/82 mmHg. The patient exercised according to the regular Gilles protocol for a total duration of 3 minutes attaining a maximum heart rate of 146 bpm which was 96% of maximum predicted heart rate; the maximum workload was 4.6 metabolic equivalents. At rest there were no ST or T wave changes noted to suggest ischemia and at peak exercise upsloping ST changes only were noted which did not meet the criteria for ischemia. No clinical angina was noted the test was terminated due to the target heart rate being achieved/fatigue. The peak bl ood pressure was 138/80 mmHg. Rate-pressure product was 21,000. Myocardial perfusion protocol. 11.5 mCi of technetium 99m sestamibi was injected at rest. The patient exercised according to regular Gilles protocol for total duration of 3 minutes and at peak exercise 34.4 mCi of technetium 99m sestamibi was injected stress images were obtained stress and rest images were reconstructed in comparing the short axis vertical long and horizontal long axis. Gated images were also obtained. Perfusion SPECT analysis: Review of the stress images demonstrate normal uptake of tracer noted in all areas of the myocardium. The resting images similarly demonstrate normal uptake of tracer noted in all areas of the myocardium. No areas of reversibility are noted to suggest ischemia no previous infarct was noted. Gated SPECT analysis: The gated ejection fraction is 86%. Conclusion: Normal exercise myocardial perfusion stress test at a low workload Preserved ejection fraction. The low workload may affect sensitivity for detection of ischemia
== END | disposition home or self-care (01) ==
LOC: CVS 06:21
PROVIDERS: PCP Family Medicine; Referring Provider Nurse Practitioner Family; Visit Provider Nurse Practitioner Family
DX: R07.9 Chest pain, unspecified (principal); R00.0 Tachycardia, unspecified; Z95.5 Presence of coronary angioplasty implant and graft
CPT/HCPCS: 78452; 93017; A9500; A4216